=== PATIENT | male | born 1990 | race Caucasian/White ===

== ENCOUNTER 2022-11-11 12:03 | Inpatient (IN) | payer MEDICAID, SELFPAY ==
[2022-11-11 12:13] VITALS: BP 182/92; PULSE 106; RESP 16; TEMP 37.6; O2SAT 96; BMI 28.7
[2022-11-11 12:40] LABS: Basophils Absolute Auto 0.1 10^3/uL (0.0-0.1); Basophils Percent Auto 0.5 % (0.2-2.0); Eosinophils Absolute Auto 0.1 10^3/uL (0.0-0.7); Eosinophils Percent Auto 0.8 % (0.9-7.0); Hematocrit 47.1 % (42.0-54.0); Hemoglobin 16.9 g/dL (14.0-18.0); Immature Granulocytes Abs Auto 0.11 10^3/uL (0.00-0.03); Immature Granulocytes Pct Auto 0.7 % (0.0-0.5); Lymphocytes Absolute Auto 1.9 10^3/uL (1.2-3.8); Lymphocytes Percent Auto 12.5 % (20.5-60.0); Mean Corpuscular HGB Conc 35.9 g/dL (29.9-35.2); Mean Corpuscular Hemoglobin 32.8 pg (25.9-34.0); Mean Corpuscular Volume 91.3 fL (80.0-94.0); Mean Platelet Volume 10.9 fL (9.5-13.5); Monocytes Absolute Auto 1.5 10^3/uL (0.3-0.8); Monocytes Percent Auto 9.7 % (1.7-12.0); Neutrophils Absolute Auto 11.6 10^3/uL (1.4-6.5); Neutrophils Percent Auto 75.8 % (43.0-75.0); Platelet Count 201 10^3/uL (150-450); Red Blood Count 5.16 10^6/uL (4.70-6.10); Red Cell Distribution Width 12.3 % (11.0-15.0); White Blood Count 15.3 10^3/uL (4.0-11.0)
[2022-11-11] MEDS: DICYCLOMINE HCL 20 MG/2 ML VIAL IM (12:54)
[2022-11-11] MEDS: KETOROLAC TROMETHAMINE 30 MG/ML VIAL IVP ×2 (12:54→17:40)
[2022-11-11] MEDS: 0.9 % SODIUM CHLORIDE 1,000 ML 1000 ML IV (12:54)
[2022-11-11 12:57] LABS: Bilirubin Urine NEGATIVE (NEGATIVE); Blood Urine NEGATIVE (NEGATIVE); Clarity Urine CLEAR (CLEAR); Color Urine YELLOW (YELLOW); Glucose Urine UA NEGATIVE (NEGATIVE); Ketones Urine NEGATIVE (NEGATIVE); Leukocyte Esterase Urine NEGATIVE (NEGATIVE); Nitrite Urine NEGATIVE (NEGATIVE); Protein Urine NEGATIVE (NEG/TRACE); Urobilinogen Urine 0.2 EU/dL (0.2-1.0); pH Urine 7.5 (5.0-9.0)
--- NOTE | 2022-11-11 13:01 | XR_ITS ---
The [address] [address] Patient Name: MILLIE PASTOR MRN: [id number] date: 1990 Sex: M Assigned Patient Location: ER Current Patient Location: ER Accession/Order Number: [id number] Exam Date: 11/11/2022 13:12 Report Date: 11/11/2022 13:33 At the request of: AMY NGUYEN Procedure: XR acute abdomen series EXAMINATION: XR acute abdomen series HISTORY: abd pain COMPARISON: No relevant comparison available. FINDINGS: LUNGS: No infiltrate, pneumothorax, or pleural effusion. MEDIASTINUM: No abnormal widening. BOWEL GAS PATTERN: Non-obstructed. Few scattered air-fluid levels in the right lower quadrant, nonspecific FREE AIR: None. CALCIFICATIONS: Right pelvic calcifications, vascular phleboliths are favored. BONES: No fracture or visible bone lesion. OTHER: Negative. XR/XR acute abdomen series IMPRESSION: Clear lungs Scattered air-fluid levels with an overall nonobstructive bowel gas pattern Electronically authenticated by: NANCY EASTON Date: 11/11/2022 13:33
[2022-11-11 13:02] LABS: Aspartate Amino Transferase 15 U/L (15-37); BUN Creatinine Ratio 11.2; Bilirubin Direct 0.2 mg/dL (0.0-0.2); Bilirubin Total 1.5 mg/dL (0.2-1.0); Calcium 9.4 mg/dL (8.5-10.1); Carbon Dioxide 29.8 mmol/L (21.0-32.0); Chloride 98 mmol/L (98-107); Estimated GFR (African America >60 (>=60); Estimated GFR (Non-African Ame >60 (>=60); Glucose 112 mg/dL (74-106); Potassium 3.8 mmol/L (3.5-5.1); Sodium 135 mmol/L (136-145)
[2022-11-11 13:03] LABS: Alanine Aminotransferase 45 U/L (16-63); Albumin Level 3.9 g/dL (3.4-5.0); Alkaline Phosphatase 75 U/L (46-116); Total Protein 7.9 g/dL (6.4-8.2)
[2022-11-11 13:04] LABS: Lactate/Lactic Acid 1.2 mmol/L (0.4-2.0)
--- NOTE | 2022-11-11 13:06 | ED_ITS ---
HPI - General Adult General Chief complaint: Abdominal Pain Stated complaint: ABDOMINAL PAIN Time Seen by Provider: 11/11/22 12:33 Source: patient Mode of arrival: walk-in History of Present Illness HPI narrative: Patient is a 32-year-old male who is presenting to the Emergency Room with chief complaint of intermittent abdominal pain. Today patient's had diffuse abdominal pain moderate to severe for the past 2 days, it has been coming and going. Patient had diarrhea this morning. Patient states he's been having intermittent constipation as well. Patient's chances of bedside. Patient states that he works for [employer], has not been doing any type of heavy lifting, twisting or turning recently. Patient had similar complaints 2 weeks ago, they lasted a couple days and went away. Patient has been taking a [id number] stool softener for the past several weeks. Patient still has his gallbladder and appendix. Patient has no history kidney stone. Patient has no history of abdominal surgery. Patient has no testicular pain. No chest pain, shortness of breath, nausea, vomiting, or any other acute complaints. Patient states he does not drink enough water. Patient had diarrhea this morning, has been several days since he had a normal loose stool bowel movement. Patient's also been having intermittent dysuria last couple days and he also had similar dysuria several weeks ago that resolved on its own. Patient is not concerned about STD. . All systems are negative except as noted/marked. All systems reviewed and otherwise negative. . Nurses note and vital signs reviewed and patient is not hypoxic. General: The patient appears well and in no apparent distress. Patient is resting comfortably on cart. Patient is not toxic, lethargic, or listless Skin: Warm, dry, no pallor noted. There is no rash noted. No petechiae, purpura. Head: Normocephalic, atraumatic Eye: Normal conjunctiva, no drainage, EOMI. PERRL Ears, Nose, Mouth, and Throat: oral mucosa is moist. Nares patent. Mouth without vesicles. Cardiovascular: Regular Rate and Rhythm, no murmur, gallop, rub Respiratory: Patient is in no distress, no accessory muscle use, lungs are clear to auscultation, no wheezing, rales or rhonchi Back: non-tender, no CVA tenderness bilaterally to percussion. No CT LS midline pain GI: soft, Patient has moderate to severe diffuse tenderness to palpation, Patient denies any testicular pain, patient has no pain to bilateral inguinal area, no flank pain bilateral, patient is displaying mild peritoneal signs, bowel sounds quiet; no masses appreciated. No rebound, guarding, or rigidity noted. No flank pain bilateral, No distention Musculoskeletal: Patient has full range of motion of all of the extremities, no motor, sensory, or focal neurological deficits Neurological: A&O x3, normal speech Psychiatric: Cooperative Related Data Home Medications Medication Instructions Recorded Confirmed No Known Home Medications 11/11/22 11/11/22 Allergies Allergy/AdvReac Type Severity Reaction Status Date / Time amoxicillin AdvReac Severe Verified 11/11/22 12:54 PFSH PFSH Family History (Updated 11/11/22 @ 17:05 by Snow Rosales) Grandfather Family history of cancer Family history of diabetes mellitus Family history of stroke Father Family history of hypertension Social History (Updated 11/11/22 @ 17:08 by Snow Rosales) Within the past year, how often did you have a drink containing alcohol: monthly or less Within the past year, how many standard drinks containing alcohol did you have on a typical day: 1 or 2 Within the past year, how often did you have six or more drinks on one occasion: never Total score: 0 Score interpretation: A score less than 4 is consistent with normal alcohol consumption. Smoking status: Former smoker Non-prescribed substance use: denies use Previous occupational history: [employer] Highest level of school completed/degree received: high school graduate Are you now , , , , never or living with a partner: living with partner In a typical week, how many times do you talk on the telephone with family, friends, or neighbors: 3 or more times per week How often do you get together with friends or relatives: 3 or more times per week How often do you attend alevism or zoroastrian services: never Little interest or pleasure in doing things: not at all Feeling down, depressed, or hopeless: not at all Feel stressed/tense/nervous/anxious/difficulty sleeping: not at all Do you think of yourself as: straight/heterosexual Gender Identity: male Exam Constitutional Vital Signs, click to edit/add: Last Vital Signs Temp 98.6 F 11/11/22 17:10 Pulse 98 H 11/11/22 17:10 Resp 18 11/11/22 17:10 BP 158/100 H 11/11/22 17:10 Pulse Ox 95 11/11/22 17:10 O2 Del Method Room Air 11/11/22 17:10 Course Vital Signs Vital signs: Vital Signs Temperature 99.6 F 11/11/22 12:13 Pulse Rate 106 H 11/11/22 12:13 Respiratory Rate 16 11/11/22 12:13 Blood Pressure 182/92 H 11/11/22 12:13 Pulse Oximetry 96 11/11/22 12:13 Oxygen Delivery Method Room Air 11/11/22 12:13 Temperature 98.6 F 11/11/22 17:10 Pulse Rate 98 H 11/11/22 17:10 Respiratory Rate 18 11/11/22 17:10 Blood Pressure 158/100 H 11/11/22 17:10 Pulse Oximetry 95 11/11/22 17:10 Oxygen Delivery Method Room Air 11/11/22 17:10 Medical Decision Making MDM Narrative Medical decision making narrative: Patient had less than 100 mL noted on bladder scan. Patient was given 1 L of IV fluid. 4 mg of Zofran along with Toradol. 1420 Patient is still having diffuse pain. Patient's x-ray shows nonspecific bowel gas pattern, diffuse moderate stool pattern, no acute signs of obstruction. Patient does have elevated white blood cells of 15. Patient will have CT the abdomen and pelvis done for further evaluation and also will be given a dose of IV morphine [address] showed diverticulitis with intramural abscess. Patient's case was discussed with . He recommended patient be admitted to medicine with him in consultation. He recommended patient be nothing by mouth after midnight. Patient's case was discussed with Dr. Pak. She is aware of him. After midnight. recommended Cipro, Flagyl, IV fluids. Patient and his fianc?e at bedside have been educated about his CT findings and admission to the hospital. Patient is aware of nothing by mouth after midnight. Lab Data Lab results reviewed: Yes I reviewed the patient's lab results Labs: Lab Results 11/11/22 Range/Units 12:20 WBC 15.3 H (4.0-11.0) 10^3/uL RBC 5.16 (4.70-6.10) 10^6/uL Hgb 16.9 (14.0-18.0) g/dL Hct 47.1 (42.0-54.0) % MCV 91.3 (80.0-94.0) fL MCH 32.8 (25.9-34.0) pg MCHC 35.9 H (29.9-35.2) g/dL RDW 12.3 (11.0-15.0) % Plt Count 201 (150-450) 10^3/uL MPV 10.9 (9.5-13.5) fL Neut % (Auto) 75.8 H (43.0-75.0) % Lymph % (Auto) 12.5 L (20.5-60.0) % [place] % (Auto) 9.7 (1.7-12.0) % Eos % (Auto) 0.8 L (0.9-7.0) % Baso % (Auto) 0.5 (0.2-2.0) % Neut # (Auto) 11.6 H (1.4-6.5) 10^3/uL Lymph # (Auto) 1.9 (1.2-3.8) 10^3/uL [place] # (Auto) 1.5 H (0.3-0.8) 10^3/uL Eos # (Auto) 0.1 (0.0-0.7) 10^3/uL Baso # (Auto) 0.1 (0.0-0.1) 10^3/uL Abs Immat Gran (auto) 0.11 H (0.00-0.03) 10^3/uL Imm/Tot Granulo (auto) 0.7 H (0.0-0.5) % Sodium 135 L (136-145) mmol/L Potassium 3.8 (3.5-5.1) mmol/L Chloride 98 (98-107) mmol/L Carbon Dioxide 29.8 (21.0-32.0) mmol/L Anion Gap 11.0 BUN 13.0 (7.0-18.0) mg/dL Creatinine 1.16 (0.70-1.30) mg/dL Est GFR ( Amer) >60 (>=60) Est GFR (Non-Af Amer) >60 (>=60) BUN/Creatinine Ratio 11.2 Glucose 112 H (74-106) mg/dL Lactate 1.2 (0.4-2.0) mmol/L Calcium 9.4 (8.5-10.1) mg/dL Total Bilirubin 1.5 H (0.2-1.0) mg/dL Direct Bilirubin 0.2 (0.0-0.2) mg/dL AST 15 (15-37) U/L ALT 45 (16-63) U/L Alkaline Phosphatase 75 (46-116) U/L Total Protein 7.9 (6.4-8.2) g/dL Albumin 3.9 (3.4-5.0) g/dL Globulin 4.0 g/dL Albumin/Globulin Ratio 1.0 Urine Color Yellow (YELLOW) Urine Clarity Clear (CLEAR) Urine pH 7.5 (5.0-9.0) Ur Specific [place] 1.010 (1.005-1.025) Urine Protein Negative (NEG/TRACE) mg/dL Urine Glucose (UA) Negative (NEGATIVE) mg/dL Urine Ketones Negative (NEGATIVE) mg/dL Urine Occult Blood Negative (NEGATIVE) Urine Nitrite Negative (NEGATIVE) Urine Bilirubin Negative (NEGATIVE) Urine Urobilinogen 0.2 (0.2-1.0) EU/dL Ur Leukocyte Esterase Negative (NEGATIVE) Urine RBC 0-2 (0-2) #/HPF Urine WBC None seen (NONE SEEN) #/HPF Ur Squamous Epith Cells Rare (NONE/RARE) #/LPF Urine Crystals None seen (None Seen) #/HPF Urine Bacteria None seen (NONE SEEN) #/HPF Urine Casts None seen (NONE SEEN) #/LPF Urine Mucus None seen (NONE SEEN) Ur Culture Indicated? No Discharge Plan Discharge Chief Complaint: Abdominal Pain Clinical Impression: Diverticulitis, Abdominal pain Patient Disposition: Admitted As Inpatient Condition: Fair Discharge Date/Time: 11/11/22 16:45
[2022-11-11 13:16] LABS: Urine Microscopic Indicated YES
[2022-11-11 13:27] LABS: Bacteria Urine NONE SEEN #/HPF (NONE SEEN); Cast Seen? NONE SEEN #/LPF (NONE SEEN); Crystals Seen? None Seen #/HPF (None Seen); Mucus Urine NONE SEEN (NONE SEEN); RBC Urine 0-2 #/HPF (0-2); Squamous Epithelial Cell Urine RARE #/LPF (NONE/RARE); Urine Culture Indicated NO; WBC Urine NONE SEEN #/HPF (NONE SEEN)
--- NOTE | 2022-11-11 14:23 | CT_ITS ---
The [address] [address] Patient Name: MILLIE PASTOR MRN: [id number] date: 1990 Sex: M Assigned Patient Location: ER Current Patient Location: ER Accession/Order Number: [id number] Exam Date: 11/11/2022 14:44 Report Date: 11/11/2022 15:12 At the request of: AMY NGUYEN Procedure: CT abdomen pelvis w con EXAM: CT abdomen pelvis w con HISTORY: abd pain COMPARISON: None. TECHNIQUE: Following intravenous administration of 99 mL of Omnipaque 350, axial soft tissue windows of the abdomen and pelvis was performed with coronal and sagittal reformats. CT dose reduction technique was used including Automated Exposure Control. Findings: Minimal bilateral lower lobe atelectasis. ABDOMEN: There is fatty infiltration of the liver. The gallbladder, spleen, pancreas, adrenal glands and kidneys are unremarkable. The bilateral ureters are nondilated. Evaluation of the bowel is limited given the absence of oral contrast. There are colonic diverticula. There is sigmoid wall thickening with adjacent stranding of the fat consistent with acute diverticulitis. In addition, there is a posterior intramural abscess extending into the adjacent fat. This measures approximately 2.7 x 2.7 x 2.1 cm. No bowel obstruction. The appendix is nondilated. The aorta is normal caliber. No enlarged abdominal lymph nodes or free abdominal fluid. Pelvis: Unremarkable bladder. The prostate is nonenlarged. No enlarged pelvic lymph nodes or free pelvic fluid. No aggressive sclerotic or lytic osseous lesions. CT/CT abdomen pelvis w con IMPRESSION: 1. Acute sigmoid diverticulitis with an intramural abscess. Electronically authenticated by: YARITZA LINDSEY Date: 11/11/2022 15:12
[2022-11-11] MEDS: MORPHINE SULFATE 4 MG/ML VIAL IV (14:29)
--- NOTE | 2022-11-11 16:43 | PM.HP ---
H&P: HPI History of Present Illness Chief complaint: ABDOMINAL PAIN DIVERTICULITIS WITH ABSCESS Narrative: patient is a 32 y.o male who presented to the ER today with abdominal pain and diarrhea. He reports this has come and gone once before. No blood in stool, no fevers or chills. No prior abdominal surgeries, no bowel history or past medical history. Non-smoker. Allergies to Penicillin. CT Findings of acute diverculitis with small area suspicious for abscess. Dr. Clayton of Gen Surg consulted from the ER. Patient admitted to [facility] for further plan of care. Review of Systems ROS Narrative ROS: a complete review of systems were reviewed with patient and are positive as below or listed in History of Chief Complaint. General: no fever, chills, night sweats Head: no headache, trauma, visual changes, nausea or vomiting Skin: no reported rashes, itching or sores Eyes: no blurriness of vision Ears: no reported hearing loss, vertigo, earache, or tinnitus Throat: no sore throat, hoarseness, swelling of neck, or tongue pain Heart: no chest pain Lungs: no shortness of breath or cough GI: diarrhea no vomiting/nausea Urinary: no urinary urgency, frequency or pain Neuro: no numbness or tingling HEM: no bleeding issues or bruising ENDO: no thyroid problems Psych: no anxiety or depression Meds Home Medications and Allergies Allergies Allergy/AdvReac Type Severity Reaction Status Date / Time amoxicillin AdvReac Severe Verified 11/11/22 12:54 Exam Narrative Exam Narrative: General: Patient is alert, and oriented to person, place and time with normal affect, proper hygiene Skin: no visible rashes, or ulcers Head: atraumatic, acephalic Eyes: PERRLA, no nystagmus present, conjunctiva clear, no scleral icterus Ears: normal gross auditory acuity Nose: symmetric, no discharge, no maxillary or frontal sinus tenderness Mouth/Throat: no erythema, exudate, or tonsillar enlargement, normal dentition Neck: no masses palpated, normal thyroid, no JVD or audible carotid bruits Heart: Normal rate and rhythm, no murmurs/rubs/gallops Lungs: no audible wheezes, crackles and normal breath sounds all lung mason Abdomen: Normal audible bowel sounds, no distension, No palpable masses, no organomegaly, no rebound/guarding/ or rigidity Musculoskeletal: muscle atrophy noted, ROM is limited due to being in hospital bed, no swelling bilateral lower extremities Vascular: Normal carotid, radial, femoral, posterior tibial, and dorsalis pedis pulses Lymph: no supraclavicular, axillary, or anterior/posterior cervical adenopathy Neuro: CN II-X grossly intact, normal sensation upper and lower extremities Constitutional Vital Signs, click to edit/add: Last Vital Signs Temp 99.6 F 11/11/22 12:13 Pulse 106 H 11/11/22 12:13 Resp 16 11/11/22 12:13 BP 182/92 H 11/11/22 12:13 Pulse Ox 96 11/11/22 12:13 O2 Del Method Room Air 11/11/22 12:13 Results Labs Labs: Short CBC 11/11/22 Range/Units 12:20 WBC 15.3 H (4.0-11.0) 10^3/uL Hgb 16.9 (14.0-18.0) g/dL Hct 47.1 (42.0-54.0) % Plt Count 201 (150-450) 10^3/uL BMP 11/11/22 12:20 Sodium 135 L Potassium 3.8 Chloride 98 Carbon Dioxide 29.8 BUN 13.0 Creatinine 1.16 Glucose 112 H Calcium 9.4 Liver Function 11/11/22 Range/Units 12:20 Total Bilirubin 1.5 H (0.2-1.0) mg/dL Direct Bilirubin 0.2 (0.0-0.2) mg/dL AST 15 (15-37) U/L ALT 45 (16-63) U/L Alkaline Phosphatase 75 (46-116) U/L Albumin 3.9 (3.4-5.0) g/dL Urine 11/11/22 Range/Units 12:20 Urine Color Yellow (YELLOW) Urine Clarity Clear (CLEAR) Urine pH 7.5 (5.0-9.0) Ur Specific [place] 1.010 (1.005-1.025) Urine Protein Negative (NEG/TRACE) mg/dL Urine Glucose (UA) Negative (NEGATIVE) mg/dL Assessment and Plan Assessment and Plan (1) Acute diverticulitis: (2) Colonic diverticular abscess: (3) Elevated BP without diagnosis of hypertension: Plan NPO after midnight, surgery consult, IVF with LR @125, continue cipro and flagyl. Pain meds as needed for pain control. Hydralazine as needed, no known history of HTN, nonsmoker, will get EKG just for presurgery reasons and treat with PRN for now. patient is full code SCD's and RIKKI gomez for DVT prophylaxis, patient is ambulatory patient is observation status and is not expected to stay more than 2 midnights.
[2022-11-11 17:06] VITALS: BP 157/108
[2022-11-11] MEDS: LACTATED RINGER'S SOLUTION 1,000 ML 125 ML IV (17:06)
[2022-11-11] MEDS: HYDRALAZINE HCL 20 MG/ML VIAL 10 MG IVP (17:06)
[2022-11-11 17:09] VITALS: BP 158/100; PULSE 98; RESP 18; TEMP 37; O2SAT 95
[2022-11-11 17:10] VITALS: BP 158/100; PULSE 98; RESP 18; TEMP 37; O2SAT 95; BMI 28.5
[2022-11-11] MEDS: CIPROFLOXACIN IN 5 % DEXTROSE 400 MG/200 ML PIGGYBACK 200 MG IV (17:39)
[2022-11-11] MEDS: METRONIDAZOLE/SODIUM CHLORIDE 500 MG/100 ML PREMIX 100 MG IV ×2 (17:39→23:43)
[2022-11-11 20:00] VITALS: RESP 18
[2022-11-11 21:03] VITALS: BP 145/87; PULSE 107; RESP 18; TEMP 36.9; O2SAT 95
[2022-11-11] MEDS: ACETAMINOPHEN 325 MG TABLET 650 MG PO (21:10)
[2022-11-11] MEDS: ONDANSETRON PF 4 MG/2 ML VIAL IV (21:11)
[2022-11-11] MEDS: MORPHINE SULFATE 2 MG/ML SYRINGE 1 MG IV (23:38)
[2022-11-12 04:49] LABS: Basophils Absolute Auto 0.1 10^3/uL (0.0-0.1); Basophils Percent Auto 0.8 % (0.2-2.0); Eosinophils Absolute Auto 0.3 10^3/uL (0.0-0.7); Eosinophils Percent Auto 3.4 % (0.9-7.0); Hematocrit 40.7 % (42.0-54.0); Hemoglobin 14.1 g/dL (14.0-18.0); Immature Granulocytes Abs Auto 0.07 10^3/uL (0.00-0.03); Immature Granulocytes Pct Auto 0.9 % (0.0-0.5); Lymphocytes Absolute Auto 1.8 10^3/uL (1.2-3.8); Lymphocytes Percent Auto 23.6 % (20.5-60.0); Mean Corpuscular HGB Conc 34.6 g/dL (29.9-35.2); Mean Corpuscular Hemoglobin 32.7 pg (25.9-34.0); Mean Corpuscular Volume 94.4 fL (80.0-94.0); Mean Platelet Volume 10.8 fL (9.5-13.5); Monocytes Absolute Auto 0.8 10^3/uL (0.3-0.8); Monocytes Percent Auto 11.4 % (1.7-12.0); Neutrophils Absolute Auto 4.4 10^3/uL (1.4-6.5); Neutrophils Percent Auto 59.9 % (43.0-75.0); Platelet Count 170 10^3/uL (150-450); Red Blood Count 4.31 10^6/uL (4.70-6.10); Red Cell Distribution Width 12.4 % (11.0-15.0); White Blood Count 7.4 10^3/uL (4.0-11.0)
[2022-11-12 05:13] LABS: INR 0.97; Partial Thromboplastin Time 30.6 sec (22.3-36.2); Prothrombin Time 10.3 sec (9.0-11.6)
[2022-11-12 05:17] LABS: Alanine Aminotransferase 31 U/L (16-63); Albumin Globulin Ratio 0.8; Albumin Level 2.9 g/dL (3.4-5.0); Alkaline Phosphatase 53 U/L (46-116); Anion Gap 11.2; Aspartate Amino Transferase 10 U/L (15-37); Bilirubin Total 0.4 mg/dL (0.2-1.0); Calcium 8.8 mg/dL (8.5-10.1); Carbon Dioxide 29.7 mmol/L (21.0-32.0); Chloride 104 mmol/L (98-107); Estimated GFR (African America >60 (>=60); Estimated GFR (Non-African Ame >60 (>=60); Globulin 3.5 g/dL; Glucose 101 mg/dL (74-106); Potassium 3.9 mmol/L (3.5-5.1); Sodium 141 mmol/L (136-145); Total Protein 6.4 g/dL (6.4-8.2)
[2022-11-12 05:30] VITALS: BP 108/69; PULSE 81; RESP 18; TEMP 37.2; O2SAT 95
[2022-11-12] MEDS: MORPHINE SULFATE 2 MG/ML SYRINGE 1 MG IV ×2 (05:44→21:49)
[2022-11-12] MEDS: LACTATED RINGER'S SOLUTION 1,000 ML 125 ML IV ×4 (06:15→23:48)
[2022-11-12] MEDS: KETOROLAC TROMETHAMINE 30 MG/ML VIAL IVP ×2 (07:50→14:14)
[2022-11-12] MEDS: METRONIDAZOLE/SODIUM CHLORIDE 500 MG/100 ML PREMIX 100 MG IV ×3 (07:50→23:50)
[2022-11-12 08:00] VITALS: RESP 18
--- NOTE | 2022-11-12 08:45 | ECG_ITS ---
The [facility] Test Date: 2022-11-12 Pat Name: MILLIE PASTOR Department: Room: Gender: Male Rn Visiting: Alisson Longoria : 1990 Requested By: [id number] Order Number: [id number] Reading MD: ROBBI BALL Measurements Intervals [place] Rate: 66 P: 47 [place]: 149 QRS: -3 QRSD: 95 T: -8 QT: 404 QTc: 425 Interpretive Statements SINUS RHYTHM No previous ECG available for comparison Electronically Signed On 11-13-2022 7:32:03 EDT by ROBBI BALL
--- NOTE | 2022-11-12 08:45 | PM.PN ---
Progress Note: Subjective Subjective Interval history: patient is a 32 y.o male who presented to the ER with abdominal pain and diarrhea. He reports this has come and gone once before. No blood in stool, no fevers or chills. No prior abdominal surgeries, no bowel history or past medical history. Non-smoker. Allergies to Penicillin. CT Findings of acute diverticulitis with small area suspicious for abscess. Dr. Clayton of Gen Surg consulted from the ER. Patient admitted to [facility] for further plan of care. Still with some abdominal pain this morning, no diarrhea overnight, no fevers, no n/v. NPO currently. Exam Narrative Exam Narrative: General: Patient is alert, and oriented to person, place and time with normal affect, proper hygiene Skin: no visible rashes, or ulcers Head: atraumatic, acephalic Eyes: PERRLA, no nystagmus present, conjunctiva clear, no scleral icterus Ears: normal gross auditory acuity Nose: symmetric, no discharge, no maxillary or frontal sinus tenderness Mouth/Throat: no erythema, exudate, or tonsillar enlargement, normal dentition Neck: no masses palpated, normal thyroid, no JVD or audible carotid bruits Heart: Normal rate and rhythm, no murmurs/rubs/gallops Lungs: no audible wheezes, crackles and normal breath sounds all lung mason Abdomen:hyperactive bowel sounds, no distension, No palpable masses, no organomegaly, diffuse tenderness, worse on LLQ with no rebound or rigidity Musculoskeletal: muscle atrophy noted, ROM is limited due to being in hospital bed, no swelling bilateral lower extremities Vascular: Normal carotid, radial, femoral, posterior tibial, and dorsalis pedis pulses Lymph: no supraclavicular, axillary, or anterior/posterior cervical adenopathy Neuro: CN II-X grossly intact, normal sensation upper and lower extremities Constitutional Vital Signs, click to edit/add: Last Vital Signs Temp 98.9 F 11/12/22 05:30 Pulse 81 11/12/22 05:30 Resp 18 11/12/22 05:30 BP 108/69 11/12/22 05:30 Pulse Ox 95 11/12/22 05:30 O2 Del Method Room Air 11/12/22 05:30 Progress Note: Objective Labs Labs: Short CBC 11/11/22 11/12/22 Range/Units 12:20 04:10 WBC 15.3 H 7.4 (4.0-11.0) 10^3/uL Hgb 16.9 14.1 (14.0-18.0) g/dL Hct 47.1 40.7 L (42.0-54.0) % Plt Count 201 170 (150-450) 10^3/uL BMP 11/11/22 11/12/22 12:20 04:10 Sodium 135 L 141 Potassium 3.8 3.9 Chloride 98 104 Carbon Dioxide 29.8 29.7 BUN 13.0 10.0 Creatinine 1.16 0.91 Glucose 112 H 101 Calcium 9.4 8.8 Liver Function 11/11/22 11/12/22 Range/Units 12:20 04:10 Total Bilirubin 1.5 H 0.4 (0.2-1.0) mg/dL Direct Bilirubin 0.2 (0.0-0.2) mg/dL AST 15 10 L (15-37) U/L ALT 45 31 (16-63) U/L Alkaline Phosphatase 75 53 (46-116) U/L Albumin 3.9 2.9 L (3.4-5.0) g/dL Urine 11/11/22 Range/Units 12:20 Urine Color Yellow (YELLOW) Urine Clarity Clear (CLEAR) Urine pH 7.5 (5.0-9.0) Ur Specific [place] 1.010 (1.005-1.025) Urine Protein Negative (NEG/TRACE) mg/dL Urine Glucose (UA) Negative (NEGATIVE) mg/dL Progress Note: A&P Assessment and Plan (1) Acute diverticulitis: (2) Colonic diverticular abscess: (3) Elevated BP without diagnosis of hypertension: Plan NPO after midnight, surgery consult, IVF with LR @125, continue cipro and flagyl. Pain meds as needed for pain control. Hydralazine as needed, no known history of HTN, nonsmoker, will get EKG just for presurgery reasons and treat with PRN for now. WBCs improved this morning. patient is full code SCD's and RIKKI hose for DVT prophylaxis, patient is ambulatory patient is observation status and is not expected to stay more than 2 midnights.
--- NOTE | 2022-11-12 11:27 | CM.NOTE ---
Rounds made with Dr. Pak. Awaiting plan from General Surgery. No needs identified.
[2022-11-12 14:00] VITALS: BP 126/76; PULSE 70; RESP 18; TEMP 36.6; O2SAT 95
--- NOTE | 2022-11-12 15:10 | P.GSCN_ITS ---
History of Present Illness Consult details Consult date: 11/12/22 Reason for consult: abdominal pain Requesting physician: Sabrina Pak Narrative: Maycol Pastor is a 32-year-old male presented to the Emergency Department yesterday with complaints of abdominal pain in the left side of the abdomen so she with fever and chills which he rated to be about a 6-7 out of ten at that time. He now rates his pain as a five out of ten. It is constant. He denies any nausea vomiting melena hematochezia or any family history of inflammatory bowel disease or colon cancer. He stated that about two weeks ago he had similar pain lasted for 2-3 days with a fever but he cannot quantitate how high his temperature went because he never took it and then that it hurt to walk the pain got better and then returned 1-2 days ago. He had a CT scan of the abdomen and pelvisWith findings showing acute diverticulitis with intramural abscess.He is receiving Toradol 30 mg IV every 6 hours when necessary pain. Hurts for him to walk. He denies tobacco use but does of [place] regularly. 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 His is at the bedside. He has a 6-year-old [place] [address] CT Scan Report Signed Patient: MILLIE PASTOR MR#: [id number] : 1990 Acct:[id number] Age/Sex: 32 / M ADM Date: 11/11/22 Loc: ER Attending Dr: Ordering Physician: Amy Hunter Date of Service: 11/11/22 Procedure(s): CT abdomen pelvis w con Accession Number(s): [id number] cc: SAYDA GORDON ~ ? The [facility] ?? ? [address] [place] [address] ?? ? [place] [address] ? Patient Name: MILLIE PASTOR ? MRN: [id number]? ? date: 1990? ? Sex: M Assigned Patient Location: ER Current Patient Location: ER Accession/Order Number: [id number] Exam Date: 11/11/2022? 14:44? ? Report Date: 11/11/2022? 15:12 ? At the request of: AMY? PAY? ? Procedure:? CT abdomen pelvis w con ? EXAM: CT abdomen pelvis w con ? HISTORY: abd pain ? COMPARISON: None. ? TECHNIQUE: Following intravenous administration of 99 mL of Omnipaque 350, axial soft tissue windows of the abdomen and pelvis was performed with coronal ? and sagittal reformats. CT dose reduction technique was used including Automated Exposure Control. ? Findings: ? Minimal bilateral lower lobe atelectasis. ? ABDOMEN: ? There is fatty infiltration of the liver. ? The gallbladder, spleen, pancreas, adrenal glands and kidneys are unremarkable. The bilateral ureters are nondilated. ? Evaluation of the bowel is limited given the absence of oral contrast. There are colonic diverticula. There is sigmoid wall thickening with adjacent stranding of the fat consistent with acute diverticulitis. In addition, there is a posterior intramural abscess extending into the adjacent fat. This measures approximately 2.7 x 2.7 x 2.1 cm. No bowel obstruction. The appendix is nondilated. ? The aorta is normal caliber. ? No enlarged abdominal lymph nodes or free abdominal fluid. ? Pelvis: ? Unremarkable bladder. ? The prostate is nonenlarged. ? No enlarged pelvic lymph nodes or free pelvic fluid. ? No aggressive sclerotic or lytic osseous lesions. ? CT/CT abdomen pelvis w con IMPRESSION: 1. Acute sigmoid diverticulitis with an intramural abscess. ? ? Electronically authenticated by: TATY AREVALO ? Date: 11/11/2022? 15:12 ? Dictated By: George Arevalo M.D. Signed By: 11/11/22 1514 DD/ 1512 TD/TT:? Layaway Clerk: Review of Systems ROS Status of ROS 10 or more systems reviewed and unremarkable except as noted in history and below PFSH PFSH Family History Grandfather Family history of cancer Family history of diabetes mellitus Family history of stroke Father Family history of hypertension Social History Within the past year, how often did you have a drink containing alcohol: monthly or less Within the past year, how many standard drinks containing alcohol did you have on a typical day: 1 or 2 Within the past year, how often did you have six or more drinks on one occasion: never Total score: 0 Score interpretation: A score less than 4 is consistent with normal alcohol consumption. 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 Highest level of school completed/degree received: high school graduate Are you now , , , , never or living with a partner: living with partner In a typical week, how many times do you talk on the telephone with family, friends, or neighbors: 3 or more times per week How often do you get together with friends or relatives: 3 or more times per week How often do you attend faith or sabianist services: never Little interest or pleasure in doing things: not at all Feeling down, depressed, or hopeless: not at all Feel stressed/tense/nervous/anxious/difficulty sleeping: not at all Do you think of yourself as: straight/heterosexual Gender Identity: male Meds Home Medications and Allergies Home Medications Medication Instructions Recorded Confirmed Type No Known Home Medications 11/11/22 11/11/22 History Allergies Allergy/AdvReac Type Severity Reaction Status Date / Time amoxicillin AdvReac Severe Verified 11/11/22 12:54 Exam Constitutional Vital Signs, click to edit/add: Last Vital Signs Temp 97.8 F 11/12/22 14:00 Pulse 70 11/12/22 14:00 Resp 18 11/12/22 14:00 BP 126/76 H 11/12/22 14:00 Pulse Ox 95 11/12/22 14:00 O2 Del Method Room Air 11/12/22 14:00 Documenting provider has reviewed patient's vital signs: yes Common normals: no apparent distress, average body habitus, oriented x3 and healthy appearing Respiratory Auscultation: clear to auscultation bilaterally GI Inspection: normal to inspection Palpation: tender Details: RLQ and guarding in the RLQ Neuro Common normals: oriented x3 Sensorium/orientation: awake, alert, oriented to person, oriented to place and oriented to time Results Labs Labs: Abnormal lab results 11/12/22 Range/Units 04:10 RBC 4.31 L (4.70-6.10) 10^6/uL Hct 40.7 L (42.0-54.0) % MCV 94.4 H (80.0-94.0) fL Abs Immat Gran (auto) 0.07 H (0.00-0.03) 10^3/uL Imm/Tot Granulo (auto) 0.9 H (0.0-0.5) % AST 10 L (15-37) U/L Albumin 2.9 L (3.4-5.0) g/dL Diabetes panel 11/12/22 Range/Units 04:10 Sodium 141 (136-145) mmol/L Potassium 3.9 (3.5-5.1) mmol/L Chloride 104 (98-107) mmol/L Carbon Dioxide 29.7 (21.0-32.0) mmol/L BUN 10.0 (7.0-18.0) mg/dL Creatinine 0.91 (0.70-1.30) mg/dL Glucose 101 (74-106) mg/dL Calcium 8.8 (8.5-10.1) mg/dL AST 10 L (15-37) U/L ALT 31 (16-63) U/L Alkaline Phosphatase 53 (46-116) U/L Total Protein 6.4 (6.4-8.2) g/dL Albumin 2.9 L (3.4-5.0) g/dL Calcium panel 11/12/22 Range/Units 04:10 Calcium 8.8 (8.5-10.1) mg/dL Albumin 2.9 L (3.4-5.0) g/dL Pituitary panel 11/12/22 Range/Units 04:10 Sodium 141 (136-145) mmol/L Potassium 3.9 (3.5-5.1) mmol/L Chloride 104 (98-107) mmol/L Carbon Dioxide 29.7 (21.0-32.0) mmol/L BUN 10.0 (7.0-18.0) mg/dL Creatinine 0.91 (0.70-1.30) mg/dL Glucose 101 (74-106) mg/dL Calcium 8.8 (8.5-10.1) mg/dL Adrenal panel 11/12/22 Range/Units 04:10 Sodium 141 (136-145) mmol/L Potassium 3.9 (3.5-5.1) mmol/L Chloride 104 (98-107) mmol/L Carbon Dioxide 29.7 (21.0-32.0) mmol/L BUN 10.0 (7.0-18.0) mg/dL Creatinine 0.91 (0.70-1.30) mg/dL Glucose 101 (74-106) mg/dL Calcium 8.8 (8.5-10.1) mg/dL Total Bilirubin 0.4 (0.2-1.0) mg/dL AST 10 L (15-37) U/L ALT 31 (16-63) U/L Alkaline Phosphatase 53 (46-116) U/L Total Protein 6.4 (6.4-8.2) g/dL Albumin 2.9 L (3.4-5.0) g/dL All other labs normal. Assessment and Plan Assessment and Plan (1) Acute diverticulitis: (2) Colonic diverticular abscess: (3) Elevated BP without diagnosis of hypertension: Plan NPO after midnight, surgery consult, IVF with LR @125, continue cipro and flagyl. Pain meds as needed for pain control. Hydralazine as needed, no known history of HTN, nonsmoker, will get EKG just for presurgery reasons and treat with PRN for now. patient is full code SCD's and RIKKI gomez for DVT prophylaxis, patient is ambulatory patient is observation status and is not expected to stay more than 2 midnights. IV antibiotics for 48-72 hours and reassess clinically better and advance diet to clears. Recommend ambulation as tolerated. Will follow daily. Diverticular handout given to patient by nursing. If not better in seventy-two hours may need repeat CAT scan but will follow.
[2022-11-12] MEDS: CIPROFLOXACIN IN 5 % DEXTROSE 400 MG/200 ML PIGGYBACK 200 MG IV (19:42)
[2022-11-12 19:52] VITALS: RESP 18
[2022-11-12 21:19] VITALS: BP 132/87; PULSE 65; RESP 18; TEMP 36.7; O2SAT 96
[2022-11-13] VITALS (12 sets, daily range): BP systolic 126–162; BP diastolic 85–117; PULSE 59–75; RESP 18; TEMP 36.5–36.6; O2SAT 95–96; BMI 28.5
[2022-11-13 04:46] LABS: Basophils Absolute Auto 0.1 10^3/uL (0.0-0.1); Eosinophils Absolute Auto 0.3 10^3/uL (0.0-0.7); Eosinophils Percent Auto 4.1 % (0.9-7.0); Hematocrit 39.4 % (42.0-54.0); Hemoglobin 13.7 g/dL (14.0-18.0); Immature Granulocytes Abs Auto 0.07 10^3/uL (0.00-0.03); Immature Granulocytes Pct Auto 1.2 % (0.0-0.5); Lymphocytes Percent Auto 32.6 % (20.5-60.0); Mean Corpuscular HGB Conc 34.8 g/dL (29.9-35.2); Mean Corpuscular Hemoglobin 32.6 pg (25.9-34.0); Mean Corpuscular Volume 93.8 fL (80.0-94.0); Monocytes Absolute Auto 0.7 10^3/uL (0.3-0.8); Monocytes Percent Auto 11.8 % (1.7-12.0); Neutrophils Percent Auto 49.3 % (43.0-75.0); Platelet Count 166 10^3/uL (150-450); Red Cell Distribution Width 12.4 % (11.0-15.0)
[2022-11-13 05:07] LABS: Alanine Aminotransferase 34 U/L (16-63); Albumin Globulin Ratio 0.9; Albumin Level 2.9 g/dL (3.4-5.0); Alkaline Phosphatase 46 U/L (46-116); Anion Gap 11.5; Aspartate Amino Transferase 17 U/L (15-37); BUN Creatinine Ratio 8.2; Bilirubin Total 0.4 mg/dL (0.2-1.0); Calcium 8.5 mg/dL (8.5-10.1); Carbon Dioxide 28.4 mmol/L (21.0-32.0); Chloride 104 mmol/L (98-107); Estimated GFR (African America >60 (>=60); Estimated GFR (Non-African Ame >60 (>=60); Globulin 3.3 g/dL; Glucose 91 mg/dL (74-106); Potassium 3.9 mmol/L (3.5-5.1); Sodium 140 mmol/L (136-145); Total Protein 6.2 g/dL (6.4-8.2)
--- NOTE | 2022-11-13 08:55 | P.PN_ITS ---
Progress Note: Subjective Subjective Interval history: patient is a 32 y.o male who presented to the ER with abdominal pain and diarrhea. He reports this has come and gone once before. No blood in stool, no fevers or chills. No prior abdominal surgeries, no bowel history or past medical history. Non-smoker. Allergies to Penicillin. CT Findings of acute diverticulitis with small area suspicious for abscess. Dr. Clayton of Gen Surg consulted from the ER. Patient admitted to [facility] for further plan of care. Ab dominal pain has improved this morning, no BM's overnight, no fevers, no n/v. on Clears currently. Exam Narrative Exam Narrative: General: Patient is alert, and oriented to person, place and time with normal affect, proper hygiene Skin: no visible rashes, or ulcers Head: atraumatic, acephalic Heart: Normal rate and rhythm, no murmurs/rubs/gallops Lungs: no audible wheezes, crackles and normal breath sounds all lung mason Abdomen:hyperactive bowel sounds, no distension, No palpable masses, no o rganomegaly, diffuse tenderness with no rebound or rigidity Musculoskeletal: muscle atrophy noted, ROM is limited due to being in hospital bed, no swelling bilateral lower extremities Vascular: Normal carotid, radial, femoral, posterior tibial, and dorsalis pedis pulses Lymph: no supraclavicular, axillary, or anterior/posterior cervical adenopathy Neuro: CN II-X grossly intact, normal sensation upper and lower extremities Constitutional Vital Signs, click to edit/add: Last Vital Signs Temp 97.7 F 11/13/22 05:49 Pulse 59 L 11/13/22 08:09 Resp 18 11/13/22 05:49 BP 126/85 H 11/13/22 05:49 Pulse Ox 96 11/13/22 05:49 O2 Del Method Room Air 11/13/22 05:49 Progress Note: Objective Labs Labs: Short CBC 11/13/22 Range/Units 03:54 WBC 6.0 (4.0-11.0) 10^3/uL Hgb 13.7 L (14.0-18.0) g/dL Hct 39.4 L (42.0-54.0) % Plt Count 166 (150-450) 10^3/uL BMP 11/13/22 03:54 Sodium 140 Potassium 3.9 Chloride 104 Carbon Dioxide 28.4 BUN 8.0 Creatinine 0.97 Glucose 91 Calcium 8.5 Liver Function 11/13/22 Range/Units 03:54 Total Bilirubin 0.4 (0.2-1.0) mg/dL AST 17 (15-37) U/L ALT 34 (16-63) U/L Alkaline Phosphatase 46 (46-116) U/L Albumin 2.9 L (3.4-5.0) g/dL Progress Note: A&P Assessment and Plan (1) Acute diverticulitis: (2) Colonic diverticular abscess: (3) Elevated BP without diagnosis of hypertension: Plan surgery consult follow recs, IVF with LR @125, continue cipro and flagyl. Pain meds as needed for pain control. Hydralazine as needed, no known history of HTN, nonsmoker WBCs improved this morning. Clear diet, no BM, still with some pain; repeat CT in 72 hours if symptoms still present or worse. will need 2 weeks of antibiotics at discharge. advance diet once pain free patient is full code SCD's and RIKKI gomez for DVT prophylaxis, patient is ambulatory patient is inpatient status and is not expected to stay more than 2 midnights.
[2022-11-13] MEDS: LACTATED RINGER'S SOLUTION 1,000 ML 125 ML IV ×2 (09:01→19:33)
[2022-11-13] MEDS: METRONIDAZOLE/SODIUM CHLORIDE 500 MG/100 ML PREMIX 100 MG IV ×2 (09:04→15:11)
--- NOTE | 2022-11-13 12:49 | P.HP_ITS ---
H&P: HPI History of Present Illness Chief complaint: ABDOMINAL PAIN DIVERTICULITIS WITH ABSCESS PFSH PFSH Family History Grandfather Family history of cancer Family history of diabetes mellitus Family history of stroke Father Family history of hypertension Social History Within the past year, how often did you have a drink containing alcohol: monthly or less Within the past year, how many standard drinks containing alcohol did you have on a typical day: 1 or 2 Within the past year, how often did you have six or more drinks on one occasion: never Total score: 0 Score interpretation: A score less than 4 is consistent with normal alcohol consumption. 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 Highest level of school completed/degree received: high school graduate Are you now , , , , never or living with a partner: living with partner In a typical week, how many times do you talk on the telephone with family, friends, or neighbors: 3 or more times per week How often do you get together with friends or relatives: 3 or more times per week How often do you attend religious or church services: never Little interest or pleasure in doing things: not at all Feeling down, depressed, or hopeless: not at all Feel stressed/tense/nervous/anxious/difficulty sleeping: not at all Do you think of yourself as: straight/heterosexual Gender Identity: male Meds Home Medications and Allergies Home Medications Medication Instructions Recorded Confirmed Type No Known Home Medications 11/11/22 11/11/22 History levofloxacin 750 mg tablet 750 mg PO DAILY 10 days #10 tabs 11/14/22 Rx metronidazole 500 mg tablet 500 mg PO Q8H 10 days #30 tabs 11/14/22 Rx Allergies Allergy/AdvReac Type Severity Reaction Status Date / Time amoxicillin AdvReac Severe Verified 11/11/22 12:54 Exam Constitutional Vital Signs, click to edit/add: Last Vital Signs Temp 97.7 F 11/13/22 05:49 Pulse 75 11/13/22 11:59 Resp 18 11/13/22 08:00 BP 126/85 H 11/13/22 05:49 Pulse Ox 96 11/13/22 05:49 O2 Del Method Room Air 11/13/22 05:49 Results Labs Labs: Short CBC 11/13/22 Range/Units 03:54 WBC 6.0 (4.0-11.0) 10^3/uL Hgb 13.7 L (14.0-18.0) g/dL Hct 39.4 L (42.0-54.0) % Plt Count 166 (150-450) 10^3/uL BMP 11/13/22 03:54 Sodium 140 Potassium 3.9 Chloride 104 Carbon Dioxide 28.4 BUN 8.0 Creatinine 0.97 Glucose 91 Calcium 8.5 Liver Function 11/13/22 Range/Units 03:54 Total Bilirubin 0.4 (0.2-1.0) mg/dL AST 17 (15-37) U/L ALT 34 (16-63) U/L Alkaline Phosphatase 46 (46-116) U/L Albumin 2.9 L (3.4-5.0) g/dL Assessment and Plan Assessment and Plan (1) Acute diverticulitis: (2) Colonic diverticular abscess: (3) Elevated BP without diagnosis of hypertension: Plan NPO after midnight, surgery consult, IVF with LR @125, continue cipro and flagyl. Pain meds as needed for pain control. Hydralazine as needed, no known history of HTN, nonsmoker, will get EKG just for presurgery reasons and treat with PRN for now. patient is full code SCD's and RIKKI gomez for DVT prophylaxis, patient is ambulatory patient is observation status and is not expected to stay more than 2 midnights. IV antibiotics for 48-72 hours and reassess clinically better and advance diet to clears. Recommend ambulation as tolerated. Will follow daily. Diverticular handout given to patient by nursing. If not better in seventy-two hours may need repeat CAT scan but will follow.
--- NOTE | 2022-11-13 13:37 | CM.NOTE ---
Rounds made with Dr. Pak. Plan to continue IV antibiotics per Surgery recommendations. No plan for discharge today.
--- NOTE | 2022-11-13 13:45 | PM.GSPN ---
Progress Note: A&P Assessment and Plan (1) Acute diverticulitis: (2) Colonic diverticular abscess: (3) Elevated BP without diagnosis of hypertension: Plan continue IV antibiotics; clear liquids until pain free and then would recommend 2 weeks worth of po cipro + flagyl and only advance to soft diet after pain free. Subjective Subjective Patient reports: no new complaints, feels better, pain is less, tolerating liquids well, no bowel movement and afebrile Interval history: Tolerating clear liquids started today. Would not advance to regular diet until passing more flatus or pain free.WBC normal Exam Constitutional Vital Signs, click to edit/add: Last Vital Signs Temp 97.7 F 11/13/22 05:49 Pulse 75 11/13/22 11:59 Resp 18 11/13/22 08:00 BP 126/85 H 11/13/22 05:49 Pulse Ox 96 11/13/22 05:49 O2 Del Method Room Air 11/13/22 05:49 Documenting provider has reviewed patient's vital signs: yes Common normals: no apparent distress and oriented x3 GI Common normals: soft to palpation Palpation: tender (less tenderness than yesterday)
[2022-11-13] MEDS: KETOROLAC TROMETHAMINE 30 MG/ML VIAL IVP (15:11)
[2022-11-13] MEDS: CIPROFLOXACIN IN 5 % DEXTROSE 400 MG/200 ML PIGGYBACK 200 MG IV (22:09)
[2022-11-13] MEDS: HYDRALAZINE HCL 20 MG/ML VIAL 10 MG IVP (22:42)
[2022-11-14] MEDS: METRONIDAZOLE/SODIUM CHLORIDE 500 MG/100 ML PREMIX 100 MG IV ×2 (01:34→08:43)
[2022-11-14 03:58] VITALS: BP 145/102; PULSE 65; RESP 18; TEMP 36.6; O2SAT 96
[2022-11-14 04:35] LABS: Basophils Absolute Auto 0.1 10^3/uL (0.0-0.1); Basophils Percent Auto 0.9 % (0.2-2.0); Eosinophils Absolute Auto 0.2 10^3/uL (0.0-0.7); Eosinophils Percent Auto 3.1 % (0.9-7.0); Hematocrit 43.5 % (42.0-54.0); Immature Granulocytes Abs Auto 0.09 10^3/uL (0.00-0.03); Immature Granulocytes Pct Auto 1.5 % (0.0-0.5); Lymphocytes Absolute Auto 1.8 10^3/uL (1.2-3.8); Lymphocytes Percent Auto 30.4 % (20.5-60.0); Mean Corpuscular HGB Conc 34.5 g/dL (29.9-35.2); Mean Corpuscular Hemoglobin 32.2 pg (25.9-34.0); Mean Corpuscular Volume 93.3 fL (80.0-94.0); Mean Platelet Volume 10.5 fL (9.5-13.5); Monocytes Absolute Auto 0.7 10^3/uL (0.3-0.8); Monocytes Percent Auto 11.3 % (1.7-12.0); Neutrophils Absolute Auto 3.1 10^3/uL (1.4-6.5); Neutrophils Percent Auto 52.8 % (43.0-75.0); Platelet Count 193 10^3/uL (150-450); Red Blood Count 4.66 10^6/uL (4.70-6.10); Red Cell Distribution Width 12.4 % (11.0-15.0); White Blood Count 5.8 10^3/uL (4.0-11.0)
[2022-11-14 04:47] LABS: Alanine Aminotransferase 45 U/L (16-63); Albumin Globulin Ratio 0.9; Albumin Level 3.1 g/dL (3.4-5.0); Alkaline Phosphatase 49 U/L (46-116); Anion Gap 12.2; Aspartate Amino Transferase 27 U/L (15-37); BUN Creatinine Ratio 7.4; Bilirubin Total 0.5 mg/dL (0.2-1.0); Calcium 8.6 mg/dL (8.5-10.1); Carbon Dioxide 27.5 mmol/L (21.0-32.0); Chloride 105 mmol/L (98-107); Estimated GFR (African America >60 (>=60); Estimated GFR (Non-African Ame >60 (>=60); Globulin 3.5 g/dL; Glucose 91 mg/dL (74-106); Potassium 3.7 mmol/L (3.5-5.1); Sodium 141 mmol/L (136-145); Total Protein 6.6 g/dL (6.4-8.2)
[2022-11-14] MEDS: LACTATED RINGER'S SOLUTION 1,000 ML 125 ML IV (06:10)
--- NOTE | 2022-11-14 06:18 | P.GSPN_ITS ---
Progress Note: A&P Assessment and Plan (1) Acute diverticulitis: (2) Colonic diverticular abscess: (3) Elevated BP without diagnosis of hypertension: Plan advanced to full liquid diet; okay to discharge but would recommend two weeks worth of Cipro and Flagyl; advance to soft diet once pain has resolved compl etely. Subjective Subjective Patient reports: no new complaints, feels better, pain is less, tolerating liquids well, bowel movement and afebrile Interval history: patient feeling better and had bowel movement last evening. Desires full liquids. Will advance to full iquids and recommend staying on this diet until all pain has resolved. Exam Constitutional Vital Signs, click to edit/add: Last Vital Signs Temp 97.9 F 11/14/22 03:58 Pulse 65 11/14/22 03:58 Resp 18 11/14/22 03:58 BP 145/102 H 11/14/22 03:58 Pulse Ox 96 11/14/22 03:58 O2 Del Method Room Air 11/14/22 03:58 Documenting provider has reviewed patient's vital signs: yes Common normals: no apparent distress and oriented x3 GI Common normals: Normal to inspection, nondistended, normoactive bowel sounds present Palpation: soft and other (normal tenderness left lower quadrant no guarding or rebound)
--- NOTE | 2022-11-14 13:08 | PM.DS1 ---
DS: Providers Provider Date of admission: 11/12/22 13:04 Primary care physician: SAYDA GORDON Consults: 11/11/22 16:34 Consult to General Surgeon Routine Consulting Provider: Venkat Clayton Attending physician on discharge: Shaikh Kieran Discharging clinician: Shaikh Kieran Anticipated date of discharge: 11/14/22 DS: Diagnosis Discharge Diagnosis (1) Acute diverticulitis: Assessment and plan: Tolerating liquid diet. Minimal LLQ pain. No nausea/vomiting. On Cipro/flagyl. (2) Colonic diverticular abscess: Assessment and plan: Conservatively managed with bowel rest and Abx. (3) Elevated BP without diagnosis of hypertension: Assessment and plan: Will defer to PCP for treatment if deemed necessary. DS: Summary Hospital Course Hospital Course: Patient presented with abdominal pain and diarrhea - work up c/w acute diverticulitis with diverticular abscess. Managed conservatively with Bowel rest, IV fluids and IV Cipro and Flagyl. Gradually advanced diet. Tolerating liquid diet. No nausea/vomiting. Pain is minimal. Still has diarrhea but improved from before. Evaluated by Gen Surgery. Ok to discharge on oral Abx. Patient to slowly advance his diet as tolerated. Outpatient Colonoscopy in 6-8 weeks. F/u with PCP in 1-2 weeks. Patient educated on worrisome signs and symptoms that should prompt him to seek medical care and return to ED if needed. Status at Discharge Functional status at discharge: independent ambulation Overall status at discharge: patient is back to baseline Time Spent with Patient Time attestation: Total time spent providing and/or coordinating discharge services: Time spent: greater than 30 minutes Exam Constitutional Vital Signs, click to edit/add: Last Vital Signs Temp 97.9 F 11/14/22 03:58 Pulse 65 11/14/22 03:58 Resp 18 11/14/22 03:58 BP 145/102 H 11/14/22 03:58 Pulse Ox 96 11/14/22 03:58 O2 Del Method Room Air 11/14/22 03:58 Documenting provider has reviewed patient's vital signs: yes Common normals: no apparent distress and average body habitus HENAK Common normals: normocephalic and head/scalp atraumatic Eye Common normals: conjunctivae normal Respiratory Common normals: normal respiratory effort, no use of accessory muscles and clear to auscultation bilaterally Cardio Common normals: no JVD, regular rate, S1 normal heart sound, S2 normal heart sound and no murmurs GI Common normals: Normal to inspection, nondistended, normoactive bowel sounds present, soft to palpation and no hepatosplenomegaly Palpation: tender (mild tenderness in LLQ) Details: LLQ Neuro Common normals: oriented x3, moves all extremities, no focal motor deficits and no sensory deficits noted Psych Common normals: mental status grossly normal, cooperative, denies hallucinations, denies homicidal ideation and denies suicidal ideation DS: Data Data Completed and Pending Labs on day of discharge: Labs from last 24 hours 11/14/22 03:54 WBC 5.8 RBC 4.66 L Hgb 15.0 Hct 43.5 MCV 93.3 MCH 32.2 MCHC 34.5 RDW 12.4 Plt Count 193 MPV 10.5 Neut % (Auto) 52.8 Lymph % (Auto) 30.4 [place] % (Auto) 11.3 Eos % (Auto) 3.1 Baso % (Auto) 0.9 Neut # (Auto) 3.1 Lymph # (Auto) 1.8 [place] # (Auto) 0.7 Eos # (Auto) 0.2 Baso # (Auto) 0.1 Abs Immat Gran (auto) 0.09 H Imm/Tot Granulo (auto) 1.5 H Sodium 141 Potassium 3.7 Chloride 105 Carbon Dioxide 27.5 Anion Gap 12.2 BUN 7.0 Creatinine 0.94 Est GFR ( Amer) >60 Est GFR (Non-Af Amer) >60 BUN/Creatinine Ratio 7.4 Glucose 91 Calcium 8.6 Total Bilirubin 0.5 AST 27 ALT 45 Alkaline Phosphatase 49 Total Protein 6.6 Albumin 3.1 L Globulin 3.5 Albumin/Globulin Ratio 0.9 Discharge Plan Discharge Disposition: Home, Self-Care Condition: Fair Discharge Medications: New levofloxacin 750 mg tablet 750 mg PO DAILY 10 Days Qty: 10 0RF metronidazole 500 mg tablet 500 mg PO Q8H 10 Days Qty: 30 0RF No Action No Known Home Medications Activity: resume usual activities as tolerated Diet Detail: Liquid diet, slowly advance to soft diet and then regular diet as tolerated Patient Instructions: Diverticulitis (GEN), Diverticulitis Diet (GEN) Forms: Portal Instructions Follow Up Appointments: PCP in 1-2 week
--- NOTE | 2022-11-16 15:19 | CM.DCFOLLOWU ---
Person spoke with:patient How are you feeling? well How is your pain? a little pain last night Did you understand your discharge instructions? yes Do you have any questions about your discharge instructions? no Were you given any prescriptions at discharge? yes Were you able to get your prescriptions filled? yes Do you understand how to take your medications as ordered? yes Do you have any questions about your follow up appointment and do you plan to keep your follow up appointment? no questions and yes Is there anything else that you would like to discuss? no Questions/Comments/Concerns/Other:
== END 2022-11-14 14:36 | disposition home or self-care (01) | DRG 392 ==
LOC: ER 16:59 → MS 11-12 06:13
PROVIDERS: Admitting Provider Internal Medicine; Emergency Provider Emergency Medicine; PCP Internal Medicine; Visit Provider Family Medicine
DX: K57.20 Diverticulitis of large intestine with perforation and abscess without bleeding (principal); R03.0 Elevated blood-pressure reading, without diagnosis of hypertension; Z83.3 Family history of diabetes mellitus; Z82.3 Family history of stroke; Z80.9 Family history of malignant neoplasm, unspecified; Z82.49 Family history of ischemic heart disease and other diseases of the circulatory system; Z87.891 Personal history of nicotine dependence; Z88.0 Allergy status to penicillin
CPT/HCPCS: 36415; 51798; 74022; 74177; 80053; 80076; 81001; 81003; 81015; 83605; 85025; 85610; 85730; 93005; 96361; 96365; 96366; 96367; 96368; 96372; 96375; 96376; 99285; G0378; J0500; Q9967

== ENCOUNTER 2022-11-22 22:04 | Inpatient (IN) | payer MEDICAID, SELFPAY ==
[2022-11-22] VITALS (10 sets, daily range): BP systolic 122–141; BP diastolic 86–103; PULSE 90–109; RESP 8–18; TEMP 37.5; O2SAT 97; BMI 28.7
--- NOTE | 2022-11-22 22:22 | ECG_ITS ---
The [facility] Test Date: 2022-11-22 Pat Name: MILLIE PASTOR Department: Room: - Gender: Male [employer]: : 1990 Requested By: [id number] Order Number: [id number] Reading MD: ROBBI BALL Measurements Intervals [place] Rate: 91 P: 53 LA: 168 QRS: -52 QRSD: 92 T: -4 QT: 366 QTc: 414 Interpretive Statements 1100 Sinus rhythm 7200 Abnormal left axis deviation 9130 borderline ECG Compared to ECG 11/12/2022 08:58:02 Left-axis deviation now present Electronically Signed On 11-23-2022 20:26:16 EDT by ROBBI BALL
--- NOTE | 2022-11-22 22:22 | XR_ITS ---
The [address] [address] Patient Name: MILLIE PASTOR MRN: [id number] date: 1990 Sex: M Assigned Patient Location: ED.MAIN Current Patient Location: ER Accession/Order Number: [id number] Exam Date: 11/22/2022 23:08 Report Date: 11/22/2022 23:27 At the request of: BROWN TREVIZO Procedure: XR chest 1V EXAM: XR chest 1V HISTORY: pain , perforation COMPARISON: 11/11/2022. TECHNIQUE: AP view of the chest FINDINGS: The level of inspiration is suboptimal. There is no focal airspace consolidation. The cardiomediastinal silhouette is not enlarged. No evidence of pleural effusion or pneumothorax are identified. No acute osseous abnormality. XR/XR chest 1V IMPRESSION: No acute cardiopulmonary process. Electronically authenticated by: JENNIFER HENNESSYU Date: 11/22/2022 23:27
[2022-11-22 22:34] LABS: Basophils Absolute Auto 0.1 10^3/uL (0.0-0.1); Eosinophils Absolute Auto 0.1 10^3/uL (0.0-0.7); Hematocrit 48.2 % (42.0-54.0); Hemoglobin 17.1 g/dL (14.0-18.0); Immature Granulocytes Abs Auto 0.09 10^3/uL (0.00-0.03); Immature Granulocytes Pct Auto 0.9 % (0.0-0.5); Lymphocytes Absolute Auto 2.8 10^3/uL (1.2-3.8); Mean Corpuscular HGB Conc 35.5 g/dL (29.9-35.2); Mean Corpuscular Hemoglobin 32.3 pg (25.9-34.0); Mean Corpuscular Volume 90.9 fL (80.0-94.0); Mean Platelet Volume 11.4 fL (9.5-13.5); Monocytes Percent Auto 10.3 % (1.7-12.0); Neutrophils Absolute Auto 5.8 10^3/uL (1.4-6.5); Neutrophils Percent Auto 58.8 % (43.0-75.0); Platelet Count 246 10^3/uL (150-450); White Blood Count 9.8 10^3/uL (4.0-11.0)
[2022-11-22] MEDS: 0.9 % SODIUM CHLORIDE 1,000 ML 1000 ML IV (22:39)
[2022-11-22] MEDS: PROCHLORPERAZINE 10 MG/2 ML VIAL 5 MG IV (22:40)
[2022-11-22] MEDS: KETOROLAC TROMETHAMINE 30 MG/ML VIAL 15 MG IVP (22:40)
--- NOTE | 2022-11-22 22:41 | CT_ITS ---
[address] [address] Patient Name: MILLIE PASTOR MRN: [id number] date: 1990 Sex: M Assigned Patient Location: ER Current Patient Location: ER Accession/Order Number: [id number] Exam Date: 11/22/2022 23:08 Report Date: 11/22/2022 23:44 At the request of: BROWN TREVIZO Procedure: CT abdomen pelvis w con EXAM: CT SCAN ABDOMEN AND PELVIS WITH IV CONTRAST DATE: 11/22/2022 11:08 PM EDT HISTORY: left lower quadrant pain with diarrhea history diverticulitis recently discharged given antibiotics. Patient is increased. No evolving nausea and diarrhea COMPARISON: 11/11/2022 TECHNIQUE: CT examination of the abdomen and pelvis was performed following the intravenous administration of IV contrast. CT dose lowering techniques were used, to include: automated exposure control, adjustment for patient size, and/or use of iterative reconstruction. 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 Lower Chest: Normal Free Air: None. Liver: Normal Gallbladder: Normal Common Bile Duct: Normal Pancreas: Normal Spleen: Normal Adrenal Glands: Right: Normal Left: Normal Kidneys: Right Kidney: Normal. Right Ureter: Normal. Left Kidney: Normal. Left Ureter: Normal. GI Tract: Distal esophagus in FOV: Normal. Stomach: Decompressed Small Bowel: Normal Appendix: Normal on axial image 74 series 3 Large Bowel: Diverticulosis with diffuse edema and inflammation of the sigmoid colon. Mesentery/Peritoneum: Diffuse edema around the sigmoid colon. Vasculature: Aorta: Normal. IVC: Normal. Felice Vein: Normal. Retroperitoneum: Normal Abdominal/Pelvic Wall: Normal Bladder: There is mild edema of the bladder wall. Reproductive: Prostate is mildly enlarged Musculoskeletal: Normal Free Fluid: None. CT/CT abdomen pelvis w con IMPRESSION: 1. Acute diverticulitis with diffuse edema of the mesentery around the sigmoid colon. No drainable fluid collection. No abscess. However, there is phlegmon. 2. Normal appendix. Electronically authenticated by: TEZ GOMEZ Date: 11/22/2022 23:44
[2022-11-22] MEDS: FAMOTIDINE/PF 20 MG/2 ML VIAL IV (22:43)
[2022-11-22 22:49] LABS: INR 1.08; Prothrombin Time 11.4 sec (9.0-11.6)
--- NOTE | 2022-11-22 22:50 | ED.ABDPAIN1 ---
HPI - Abdominal Pain General Chief Complaint: Abdominal Pain Stated Complaint: Abdominal Pain Time Seen by Provider: 11/22/22 22:21 Source: patient Mode of arrival: walk-in History of Present Illness HPI narrative: The patient presented to us with a left lower quadrant pain that been going on at least since a week he was already diagnosed with diverticulitis a week ago discharged home on Wednesday he started having pain Wednesday which is almost 5 days ago, the pain in the left lower quadrant according to the patient is 10 out of 10 radiating to the back associated with nausea and vomiting this evening he did eat this morning The patient denies any changes in bowel movement that is new no constipation He has been taking his antibiotic as well Related Data Home Medications Medication Instructions Recorded Confirmed No Known Home Medications 11/11/22 11/11/22 Previous Rx's Medication Instructions Recorded levofloxacin 750 mg tablet 750 mg PO DAILY 10 days #10 tabs 11/14/22 metronidazole 500 mg tablet 500 mg PO Q8H 10 days #30 tabs 11/14/22 Allergies Allergy/AdvReac Type Severity Reaction Status Date / Time amoxicillin AdvReac Severe Verified 11/11/22 12:54 Review of Systems ROS Status of ROS 10 or more systems reviewed and unremarkable except as noted in history and below [facility] Medical History (Updated 11/23/22 @ 00:32 by Lanie Ghosh MD) Family History Grandfather Family history of cancer Family history of diabetes mellitus Family history of stroke Father Family history of hypertension Social History Within the past year, how often did you have a drink containing alcohol: monthly or less Within the past year, how many standard drinks containing alcohol did you have on a typical day: 1 or 2 Within the past year, how often did you have six or more drinks on one occasion: never Total score: 0 Score interpretation: A score less than 4 is consistent with normal alcohol consumption. 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 Highest level of school completed/degree received: high school graduate Are you now , , , , never or living with a partner: living with partner In a typical week, how many times do you talk on the telephone with family, friends, or neighbors: 3 or more times per week How often do you get together with friends or relatives: 3 or more times per week How often do you attend adventism or zoroastrian services: never Little interest or pleasure in doing things: not at all Feeling down, depressed, or hopeless: not at all Feel stressed/tense/nervous/anxious/difficulty sleeping: not at all Do you think of yourself as: straight/heterosexual Gender Identity: male Exam Narrative Exam Narrative: Nurses notes and vital signs reviewed and patient is not hypoxic. General: Well-appearing and in no apparent distress. Skin: Warm, dry, no pallor noted. No rash. Head: Normocephalic, atraumatic. Neck: Supple, non-tender. Eye: Pupils are equal, round and EOMI. No scleral icterus. Ears, Nose, Mouth, and Throat: TM are clear, no nasal mucosal hypertrophy. Oral mucosa is moist, no posterior oropharynx erythema, uvula is mid-line Cardiovascular: Regular Rate and Rhythm without murmur, gallop or rub. Respiratory: No accessory muscle use or respiratory distress. Lungs are clear to auscultation, no wheezing, rales or rhonchi Chest Wall: no tenderness Back: No midline thoracic or lumbar vertebral tenderness. No CVA tenderness Musculoskeletal: normal ROM, no calf or popliteal tenderness, no lower extremity edema/swelling GI: Abdomen is soft, non-distended. Normal bowel sounds. No masses appreciated. Left lower quadrant abdominal tenderness noted on examination but there is a soft abdomen Neurological: A&O x4. No cranial nerve dysfunction observed. No truncal ataxia. Moves all extremities. Sensation intact. Psychiatric: Cooperative and interactive. Normal mood and affect. Constitutional Vital Signs, click to edit/add: Last Vital Signs Temp 99.5 F 11/22/22 22:09 Pulse 91 H 11/22/22 23:40 Resp 17 11/22/22 23:40 BP 140/86 11/22/22 23:30 Pulse Ox 97 11/22/22 22:09 O2 Del Method Room Air 11/22/22 22:09 Course Vital Signs Vital signs: Vital Signs Temperature 99.5 F 11/22/22 22:09 Pulse Rate 109 H 11/22/22 22:09 Respiratory Rate 18 11/22/22 22:09 Blood Pressure 141/103 H 11/22/22 22:09 Pulse Oximetry 97 11/22/22 22:09 Oxygen Delivery Method Room Air 11/22/22 22:09 Temperature 99.5 F 11/22/22 22:09 Pulse Rate 91 H 11/22/22 23:40 Respiratory Rate 17 11/22/22 23:40 Blood Pressure 140/86 11/22/22 23:30 Pulse Oximetry 97 11/22/22 22:09 Oxygen Delivery Method Room Air 11/22/22 22:09 MDM - Abdominal Pain MDM Narrative Medical decision making narrative: The patient EKG showing sinus rhythm with a heart rate of [address] elevation or depression The patient on presentation was in distress and he was almost in a panic attack he was treated initially with Toradol and Pepcid as well as Zofran The patient CBC and chemistry showed no acute significant pathology except for mild dehydration signs of low sodium and low chloride in addition to elevation in the creatinine but that was with still within normal The patient had a CAT scan with contrast showing that he had edema of the sigmoid area in addition to phlegmon and I did speak with the radiologist to compare the results and there was no increase in his inflammation but there was no resolution yet The patient case was discussed with Dr. Rodríguez and right now will change antibiotic to Zosyn and the patient will be admitted for further evaluation I discussed the case with Dr. Truong and he agrees with the plan to admit the patient Lab Data Labs: Lab Results 11/22/22 11/22/22 11/23/22 Range/Units 22:20 22:55 00:05 WBC 9.8 (4.0-11.0) 10^3/uL RBC 5.30 (4.70-6.10) 10^6/uL Hgb 17.1 (14.0-18.0) g/dL Hct 48.2 (42.0-54.0) % MCV 90.9 (80.0-94.0) fL MCH 32.3 (25.9-34.0) pg MCHC 35.5 H (29.9-35.2) g/dL RDW 12.0 (11.0-15.0) % Plt Count 246 (150-450) 10^3/uL MPV 11.4 (9.5-13.5) fL Neut % (Auto) 58.8 (43.0-75.0) % Lymph % (Auto) 28.0 (20.5-60.0) % [place] % (Auto) 10.3 (1.7-12.0) % Eos % (Auto) 1.0 (0.9-7.0) % Baso % (Auto) 1.0 (0.2-2.0) % Neut # (Auto) 5.8 (1.4-6.5) 10^3/uL Lymph # (Auto) 2.8 (1.2-3.8) 10^3/uL [place] # (Auto) 1.0 H (0.3-0.8) 10^3/uL Eos # (Auto) 0.1 (0.0-0.7) 10^3/uL Baso # (Auto) 0.1 (0.0-0.1) 10^3/uL Abs Immat Gran (auto) 0.09 H (0.00-0.03) 10^3/uL Imm/Tot Granulo (auto) 0.9 H (0.0-0.5) % PT 11.4 (9.0-11.6) sec INR 1.08 Sodium 135 L (136-145) mmol/L Potassium 4.0 (3.5-5.1) mmol/L Chloride 97 L (98-107) mmol/L Carbon Dioxide 26.3 (21.0-32.0) mmol/L Anion Gap 15.7 BUN 14.0 (7.0-18.0) mg/dL Creatinine 1.25 (0.70-1.30) mg/dL Est GFR ( Amer) >60 (>=60) Est GFR (Non-Af Amer) >60 (>=60) BUN/Creatinine Ratio 11.2 Glucose 86 (74-106) mg/dL Calcium 9.2 (8.5-10.1) mg/dL Total Bilirubin 0.8 (0.2-1.0) mg/dL AST 29 (15-37) U/L ALT 38 (16-63) U/L Alkaline Phosphatase 53 (46-116) U/L Troponin I High Sens 5.0 (4.0-76.1) pg/mL Total Protein 8.1 (6.4-8.2) g/dL Albumin 4.1 (3.4-5.0) g/dL Globulin 4.0 g/dL Albumin/Globulin Ratio 1.0 Lipase 58.0 L (73.0-393.0) U/L Urine Color Yellow (YELLOW) Urine Clarity Clear (CLEAR) Urine pH 5.5 (5.0-9.0) Ur Specific [place] <=1.005 A (1.005-1.025) Urine Protein Negative (NEG/TRACE) mg/dL Urine Glucose (UA) Negative (NEGATIVE) mg/dL Urine Ketones 40 A (NEGATIVE) mg/dL Urine Occult Blood Negative (NEGATIVE) Urine Nitrite Negative (NEGATIVE) Urine Bilirubin Negative (NEGATIVE) Urine Urobilinogen 0.2 (0.2-1.0) EU/dL Ur Leukocyte Esterase Trace A (NEGATIVE) Urine RBC 0-2 (0-2) #/HPF Urine WBC 0-2 A (NONE SEEN) #/HPF Ur Squamous Epith Cells Rare (NONE/RARE) #/LPF Urine Crystals None seen (None Seen) #/HPF Urine Bacteria None seen (NONE SEEN) #/HPF Urine Casts None seen (NONE SEEN) #/LPF Urine Mucus None seen (NONE SEEN) Ur Culture Indicated? No POC Glucose 84 (74-106) mg/dL Discharge Plan Discharge Chief Complaint: Abdominal Pain Clinical Impression: Acute diverticulitis Patient Disposition: Admitted As Inpatient Time of Disposition Decision: 00:32 Condition: Good
[2022-11-22 22:55] LABS: Alanine Aminotransferase 38 U/L (16-63); Albumin Level 4.1 g/dL (3.4-5.0); Alkaline Phosphatase 53 U/L (46-116); Anion Gap 15.7; Aspartate Amino Transferase 29 U/L (15-37); BUN Creatinine Ratio 11.2; Bilirubin Total 0.8 mg/dL (0.2-1.0); Calcium 9.2 mg/dL (8.5-10.1); Carbon Dioxide 26.3 mmol/L (21.0-32.0); Chloride 97 mmol/L (98-107); Estimated GFR (African America >60 (>=60); Estimated GFR (Non-African Ame >60 (>=60); Glucose 86 mg/dL (74-106); Sodium 135 mmol/L (136-145); Total Protein 8.1 g/dL (6.4-8.2)
[2022-11-22 22:57] LABS: Glucometer 84 mg/dL (74-106)
[2022-11-23] VITALS (16 sets, daily range): BP systolic 107–137; BP diastolic 70–85; PULSE 69–101; RESP 9–21; TEMP 36.3–36.9; O2SAT 96–98; BMI 26.6
[2022-11-23 00:13] LABS: Bilirubin Urine NEGATIVE (NEGATIVE); Blood Urine NEGATIVE (NEGATIVE); Clarity Urine CLEAR (CLEAR); Color Urine YELLOW (YELLOW); Glucose Urine UA NEGATIVE (NEGATIVE); Ketones Urine 40 mg/dL (NEGATIVE); Leukocyte Esterase Urine TRACE (NEGATIVE); Nitrite Urine NEGATIVE (NEGATIVE); Protein Urine NEGATIVE (NEG/TRACE); Specific Gravity Urine <=1.005 (1.005-1.025); Urobilinogen Urine 0.2 EU/dL (0.2-1.0); pH Urine 5.5 (5.0-9.0)
[2022-11-23 00:16] LABS: Urine Microscopic Indicated YES
[2022-11-23 00:19] LABS: Bacteria Urine NONE SEEN #/HPF (NONE SEEN); Cast Seen? NONE SEEN #/LPF (NONE SEEN); Crystals Seen? None Seen #/HPF (None Seen); Mucus Urine NONE SEEN (NONE SEEN); RBC Urine 0-2 #/HPF (0-2); Squamous Epithelial Cell Urine RARE #/LPF (NONE/RARE); Urine Culture Indicated NO; WBC Urine 0-2 #/HPF (NONE SEEN)
[2022-11-23] MEDS: PIPERACILLIN SODIUM/TAZOBACTAM 3.375 GM in 0.9 % SODIUM CHLORIDE 50 ML IV ×3 (00:59→16:10)
--- NOTE | 2022-11-23 05:17 | W.PM.TELEPN ---
Progress Note: Subjective Subjective Interval history: Left lower quadrant pain HPI: This is a 32 years old male known to this facility from previous admission who presents with above complaints. Patient apparently has been treated for diverticulitis but his symptoms did not resolve. He presents now with worsening pain. He denies fevers or chills. Repeated images of the abdomen and pelvis revealed phlegmon adjacent to sigmoid colon without any signs of perforation or abscess formation. Unchanged from previous 1. A form consultation obtained from Dr. Rider, general surgery who recommended change antibiotic to Zosyn, he is going to follow this patient in consult. Exam Narrative Exam Narrative: Physical Exam: Not in distress, pleasant, lucid, cooperative, Head - atraumatic, eyes - pupils equal, round, reactive to light, extra ocular movement intact, MMM Neck - supple, thyroid not enlarged, LN not palpated Lungs - clear to auscultation, no dullness on percussion CVS - heart sounds S1, S2, no additional murmurs gallop, regular rate and rhythm Gastrointestinal?abdomen is soft, non-tender, non-distended, no organomegaly, positive bowel sounds Extremities no clubbing, cyanosis or edema Neurological?cranial nerve II?XII grossly intact, no meningeal signs, no cerebellar signs, no sensory deficit Musculoskeletal - DJD related changes in multiple joints, no effusions, ROM preserved Dermatological - the skin dry, warm, no rashes Psychiatric?patient is AAO X3, patient has normal affect Constitutional Vital Signs, click to edit/add: Last Vital Signs Temp 97.8 F 11/23/22 03:07 Pulse 88 11/23/22 03:07 Resp 16 11/23/22 03:07 BP 123/83 11/23/22 03:07 Pulse Ox 97 11/23/22 03:07 O2 Del Method Room Air 11/23/22 03:07 Progress Note: Objective Labs Labs: Short CBC 11/22/22 Range/Units 22:20 WBC 9.8 (4.0-11.0) 10^3/uL Hgb 17.1 (14.0-18.0) g/dL Hct 48.2 (42.0-54.0) % Plt Count 246 (150-450) 10^3/uL BMP 11/22/22 22:20 Sodium 135 L Potassium 4.0 Chloride 97 L Carbon Dioxide 26.3 BUN 14.0 Creatinine 1.25 Glucose 86 Calcium 9.2 Liver Function 11/22/22 Range/Units 22:20 Total Bilirubin 0.8 (0.2-1.0) mg/dL AST 29 (15-37) U/L ALT 38 (16-63) U/L Alkaline Phosphatase 53 (46-116) U/L Albumin 4.1 (3.4-5.0) g/dL Urine 11/23/22 Range/Units 00:05 Urine Color Yellow (YELLOW) Urine Clarity Clear (CLEAR) Urine pH 5.5 (5.0-9.0) Ur Specific [place] <=1.005 A (1.005-1.025) Urine Protein Negative (NEG/TRACE) mg/dL Urine Glucose (UA) Negative (NEGATIVE) mg/dL Progress Note: A&P Assessment and Plan (1) Acute diverticulitis: Assessment and Plan: Recurrent diverticulitis this?admit to medical floor Bowel rest Symptoms controlled IV Zosyn Follow-up with Dr. Cedillo for further recommendations (2) Elevated BP without diagnosis of hypertension: Assessment and Plan: Verify and resume home medications, adjust as needed Plan As the provider for the telehealth service, I attest that I introduced myself to the patient, provided my credentials, disclosed by location and determined that based on a review of the patient's chart and discussion with members of the patient's treatment team, telemedicine via real-time, 2 way, and interactive audio and video platform is an appropriate and effective means of providing the service. ?The patient and I mutually agree this visit is appropriate for telemedicine. ?The virtual encounter was taken place from? [place], [place]. ?The encounter took approximately 35 minutes. ?The nurse was present during the entire time and I was able to move the stethoscope in appropriate directions. ?The patient was evaluated at the Hospital ? Portions of this note may be dictated using [employer] voice recognition software. Variances in spelling and vocabulary are possible and unintentional. Not all errors may be caught and/or corrected. Please notify the author if any discrepancies are noted and/or if the meaning of any statement is unclear.? ? Patient verbally consented for treatment via video visit with patient currently located at [facility] and provider located in [facility] Telemedicine Attestation Telemedicine Attestation I conducted this encounter from [[place]] via secure live, [id number] video conference with the patient, located at [facility] with [diverticulitis]. Prior to the interview, the risks and benefits of telemedicine were discussed with the patient and verbal consent was obtained.
[2022-11-23] MEDS: 0.9 % SODIUM CHLORIDE 1,000 ML 100 ML IV ×2 (05:48→22:34)
[2022-11-23 06:24] LABS: Alanine Aminotransferase 32 U/L (16-63); Albumin Level 3.2 g/dL (3.4-5.0); Alkaline Phosphatase 42 U/L (46-116); Anion Gap 13.8; Aspartate Amino Transferase 15 U/L (15-37); BUN Creatinine Ratio 13.4; Bilirubin Total 0.6 mg/dL (0.2-1.0); Calcium 8.5 mg/dL (8.5-10.1); Carbon Dioxide 25.1 mmol/L (21.0-32.0); Chloride 101 mmol/L (98-107); Estimated GFR (African America >60 (>=60); Estimated GFR (Non-African Ame >60 (>=60); Globulin 3.3 g/dL; Glucose 84 mg/dL (74-106); Potassium 3.9 mmol/L (3.5-5.1); Sodium 136 mmol/L (136-145); Total Protein 6.5 g/dL (6.4-8.2)
--- NOTE | 2022-11-23 09:45 | P.HP_ITS ---
H&P: HPI History of Present Illness Chief complaint: Abdominal Pain, ACUTE DIVERTICULITIS Narrative: Was recently hospitalized with diverticulitis. Patient was taking his antibiotics at home. Started having increasing pain with fevers consistent with his previous diagnosis of the diverticulitis. He presented to the emergency room and had confirmed diagnosis of acute diverticulitis with possible phlegmon formation. No abscess. Patient admitted for IV antibiotics and continued work- up patient would prefer not to have surgical option at this time Review of Systems ROS Status of ROS 10 or more systems reviewed and unremarkable except as noted in history and below [facility] Medical History (Updated 11/23/22 @ 00:32 by Lanie Ghosh MD) Family History Grandfather Family history of cancer Family history of diabetes mellitus Family history of stroke Father Family history of hypertension Social History Within the past year, how often did you have a drink containing alcohol: monthly or less Within the past year, how many standard drinks containing alcohol did you have on a typical day: 1 or 2 Within the past year, how often did you have six or more drinks on one occasion: never Total score: 0 Score interpretation: A score less than 4 is consistent with normal alcohol consumption. 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 Highest level of school completed/degree received: high school graduate Are you now , , , , never or living with a partner: living with partner In a typical week, how many times do you talk on the telephone with family, friends, or neighbors: 3 or more times per week How often do you get together with friends or relatives: 3 or more times per week How often do you attend taoist or anabaptist services: never Little interest or pleasure in doing things: not at all Feeling down, depressed, or hopeless: not at all Feel stressed/tense/nervous/anxious/difficulty sleeping: not at all Do you think of yourself as: straight/heterosexual Gender Identity: male Meds Home Medications and Allergies Home Medications Medication Instructions Recorded Confirmed Type No Known Home Medications 11/11/22 11/11/22 History metronidazole 500 mg tablet 500 mg PO Q8H 10 days #30 tabs 11/14/22 11/23/22 Rx Allergies Allergy/AdvReac Type Severity Reaction Status Date / Time amoxicillin AdvReac Severe Verified 11/11/22 12:54 Exam Constitutional Vital Signs, click to edit/add: Last Vital Signs Temp 97.4 F L 11/23/22 05:49 Pulse 69 11/23/22 05:49 Resp 16 11/23/22 05:49 BP 109/70 11/23/22 05:49 Pulse Ox 96 11/23/22 05:49 O2 Del Method Room Air 11/23/22 05:49 Documenting provider has reviewed patient's vital signs: yes Common normals: no apparent distress HENMT Common normals: normocephalic Respiratory Common normals: normal respiratory effort, no retractions and clear to auscultation bilaterally Cardio Common normals: regular rate, regular rhythm and no murmurs GI Common normals: Normal to inspection, nondistended, normoactive bowel sounds present, soft to palpation and no hepatosplenomegaly; tender (Left lower quadrant tenderness) Results Labs Labs: Short CBC 11/22/22 Range/Units 22:20 WBC 9.8 (4.0-11.0) 10^3/uL Hgb 17.1 (14.0-18.0) g/dL Hct 48.2 (42.0-54.0) % Plt Count 246 (150-450) 10^3/uL BMP 11/22/22 11/23/22 22:20 05:44 Sodium 135 L 136 Potassium 4.0 3.9 Chloride 97 L 101 Carbon Dioxide 26.3 25.1 BUN 14.0 13.0 Creatinine 1.25 0.97 Glucose 86 84 Calcium 9.2 8.5 Liver Function 11/22/22 11/23/22 Range/Units 22:20 05:44 Total Bilirubin 0.8 0.6 (0.2-1.0) mg/dL AST 29 15 (15-37) U/L ALT 38 32 (16-63) U/L Alkaline Phosphatase 53 42 L (46-116) U/L Albumin 4.1 3.2 L (3.4-5.0) g/dL Urine 11/23/22 Range/Units 00:05 Urine Color Yellow (YELLOW) Urine Clarity Clear (CLEAR) Urine pH 5.5 (5.0-9.0) Ur Specific [place] <=1.005 A (1.005-1.025) Urine Protein Negative (NEG/TRACE) mg/dL Urine Glucose (UA) Negative (NEGATIVE) mg/dL Assessment and Plan Assessment and Plan (1) Acute diverticulitis: (2) Elevated BP without diagnosis of hypertension: Plan Sinus tachycardia, uncontrolled hypertension, acute abdomen secondary to diverticulitis secondary to failed outpatient treatment of acute diverticulitis. Continue patient on IV antibiotics. As long as his exam improves over the next 24 to 48 hours and can maintain without surgical option. No signs of obstruction, no rebound tenderness, according to others that were around well with his last admission his abdomen is more tender than previous. Hypertension-this is likely related to the above-we will monitor daily Patient likely to have with 3 to 4-day hospital stay with failed outpatient treatment with oral antibiotics.Maintain patient on IV antibiotics.Serial labs. Serial exams. Possible surgical consultation the patient would prefer to hold off on that at the present time
--- NOTE | 2022-11-23 09:47 | CM.NOTE ---
Rounds made with Dr. Castro. Dr. Castro explained NPO status and need for IV antibiotics for several days. No discharge today.
[2022-11-23] MEDS: HYOSCYAMINE SULFATE 0.125 MG TAB.SUBL SL ×2 (11:32→15:33)
[2022-11-24] MEDS: PIPERACILLIN SODIUM/TAZOBACTAM 3.375 GM in 0.9 % SODIUM CHLORIDE 50 ML IV ×3 (01:22→17:29)
[2022-11-24 04:51] VITALS: BP 113/71; PULSE 71; RESP 18; TEMP 36.4; O2SAT 96
[2022-11-24 05:01] LABS: Basophils Absolute Auto 0.1 10^3/uL (0.0-0.1); Eosinophils Absolute Auto 0.1 10^3/uL (0.0-0.7); Eosinophils Percent Auto 1.6 % (0.9-7.0); Hematocrit 41.4 % (42.0-54.0); Immature Granulocytes Abs Auto 0.05 10^3/uL (0.00-0.03); Immature Granulocytes Pct Auto 0.8 % (0.0-0.5); Lymphocytes Absolute Auto 1.8 10^3/uL (1.2-3.8); Lymphocytes Percent Auto 29.1 % (20.5-60.0); Mean Corpuscular HGB Conc 33.8 g/dL (29.9-35.2); Mean Corpuscular Hemoglobin 31.7 pg (25.9-34.0); Mean Corpuscular Volume 93.9 fL (80.0-94.0); Mean Platelet Volume 11.3 fL (9.5-13.5); Monocytes Absolute Auto 0.7 10^3/uL (0.3-0.8); Monocytes Percent Auto 10.5 % (1.7-12.0); Neutrophils Absolute Auto 3.6 10^3/uL (1.4-6.5); Platelet Count 192 10^3/uL (150-450); Red Blood Count 4.41 10^6/uL (4.70-6.10); White Blood Count 6.3 10^3/uL (4.0-11.0)
[2022-11-24 05:14] LABS: Anion Gap 12.4; BUN Creatinine Ratio 11.1; C Reactive Protein 1.7 mg/dL (<=1.0); Calcium 8.5 mg/dL (8.5-10.1); Carbon Dioxide 26.7 mmol/L (21.0-32.0); Chloride 103 mmol/L (98-107); Estimated GFR (African America >60 (>=60); Estimated GFR (Non-African Ame >60 (>=60); Glucose 75 mg/dL (74-106); Potassium 4.1 mmol/L (3.5-5.1); Sodium 138 mmol/L (136-145)
[2022-11-24] MEDS: ACETAMINOPHEN 325 MG TABLET 650 MG PO (08:38)
[2022-11-24] MEDS: HYOSCYAMINE SULFATE 0.125 MG TAB.SUBL SL ×3 (08:40→16:30)
[2022-11-24] MEDS: 0.9 % SODIUM CHLORIDE 1,000 ML 100 ML IV (08:40)
--- NOTE | 2022-11-24 10:15 | CM.NOTE ---
Rounds made with Dr. Castro, continue NPO status. Pt continues with abdominal pain, no discharge today.
--- NOTE | 2022-11-24 10:26 | P.PN_ITS ---
Progress Note: Subjective Subjective Interval history: Patient states pain is somewhat better today. Exam Constitutional Vital Signs, click to edit/add: Last Vital Signs Temp 97.5 F L 11/24/22 04:51 Pulse 71 11/24/22 04:51 Resp 18 11/24/22 04:51 BP 113/71 11/24/22 04:51 Pulse Ox 96 11/24/22 04:51 O2 Del Method Room Air 11/24/22 04:51 Documenting provider has reviewed patient's vital signs: yes Common normals: no apparent distress HENMT Common normals: normocephalic Respiratory Common normals: normal respiratory effort, no retractions and clear to auscultation bilaterally Cardio Common normals: regular rate, regular rhythm and no murmurs GI Common normals: Normal to inspection, nondistended, normoactive bowel sounds present, soft to palpation and no hepatosplenomegaly; tender (Left lower quadrant tenderness) Progress Note: Objective Labs Labs: Short CBC 11/24/22 Range/Units 04:44 WBC 6.3 (4.0-11.0) 10^3/uL Hgb 14.0 (14.0-18.0) g/dL Hct 41.4 L (42.0-54.0) % Plt Count 192 (150-450) 10^3/uL BMP 11/24/22 04:44 Sodium 138 Potassium 4.1 Chloride 103 Carbon Dioxide 26.7 BUN 11.0 Creatinine 0.99 Glucose 75 Calcium 8.5 Progress Note: A&P Assessment and Plan (1) Acute diverticulitis: (2) Elevated BP without diagnosis of hypertension: Plan Sinus tachycardia, uncontrolled hypertension, acute abdomen secondary to diverticulitis secondary to failed outpatient treatment of acute diverticulitis.? Continue patient on IV antibiotics.? As long as his exam improves over the next 24 to 48 hours and can maintain without surgical option.? Pain overall improved-we will maintain current antibiotics, consider repeat CT scan tomorrow Hypertension-this is likely related to the above-we will monitor daily Patient likely to have with 3 to 4-day hospital stay with failed outpatient treatment with oral antibiotics.Maintain patient on IV antibiotics.Serial labs.? Serial exams.? Possible surgical consultation the patient would prefer to hold off on that at the present time
[2022-11-24 10:50] VITALS: O2SAT 96
[2022-11-24 13:17] VITALS: BP 134/89; PULSE 70; RESP 16; TEMP 36.2; O2SAT 98
[2022-11-24 13:54] VITALS: BMI 26.5
--- NOTE | 2022-11-24 14:05 | DIETREC ---
Nutrition Recommendations: 1. Add Ensure Clear BID once diet is advanced. 2. Advance diet to Low Fiber as tolerated. Reviewed with
[2022-11-24 15:11] VITALS: BMI 26.3
[2022-11-24 19:26] VITALS: O2SAT 97
[2022-11-25] VITALS (7 sets, daily range): BP systolic 128–144; BP diastolic 77–93; PULSE 72–87; RESP 16–18; TEMP 36.6–36.8; O2SAT 95–97
[2022-11-25] MEDS: 0.9 % SODIUM CHLORIDE 1,000 ML 100 ML IV ×2 (00:22→09:20)
[2022-11-25] MEDS: PIPERACILLIN SODIUM/TAZOBACTAM 3.375 GM in 0.9 % SODIUM CHLORIDE 50 ML IV ×3 (01:07→17:10)
[2022-11-25 05:38] LABS: Basophils Absolute Auto 0.1 10^3/uL (0.0-0.1); Basophils Percent Auto 1.2 % (0.2-2.0); Eosinophils Absolute Auto 0.1 10^3/uL (0.0-0.7); Eosinophils Percent Auto 2.2 % (0.9-7.0); Hematocrit 41.7 % (42.0-54.0); Hemoglobin 14.7 g/dL (14.0-18.0); Immature Granulocytes Abs Auto 0.04 10^3/uL (0.00-0.03); Immature Granulocytes Pct Auto 0.7 % (0.0-0.5); Lymphocytes Absolute Auto 1.7 10^3/uL (1.2-3.8); Lymphocytes Percent Auto 28.7 % (20.5-60.0); Mean Corpuscular HGB Conc 35.3 g/dL (29.9-35.2); Mean Corpuscular Hemoglobin 32.3 pg (25.9-34.0); Mean Corpuscular Volume 91.6 fL (80.0-94.0); Mean Platelet Volume 11.5 fL (9.5-13.5); Monocytes Absolute Auto 0.7 10^3/uL (0.3-0.8); Monocytes Percent Auto 11.3 % (1.7-12.0); Neutrophils Absolute Auto 3.3 10^3/uL (1.4-6.5); Neutrophils Percent Auto 55.9 % (43.0-75.0); Platelet Count 210 10^3/uL (150-450); Red Blood Count 4.55 10^6/uL (4.70-6.10); Red Cell Distribution Width 11.9 % (11.0-15.0); White Blood Count 5.9 10^3/uL (4.0-11.0)
[2022-11-25 05:55] LABS: Anion Gap 16.7; BUN Creatinine Ratio 9.6; Calcium 8.3 mg/dL (8.5-10.1); Carbon Dioxide 22.2 mmol/L (21.0-32.0); Chloride 104 mmol/L (98-107); Estimated GFR (African America >60 (>=60); Estimated GFR (Non-African Ame >60 (>=60); Glucose 61 mg/dL (74-106); Potassium 3.9 mmol/L (3.5-5.1); Sodium 139 mmol/L (136-145)
[2022-11-25] MEDS: HYOSCYAMINE SULFATE 0.125 MG TAB.SUBL SL ×2 (09:20→17:10)
--- NOTE | 2022-11-25 09:27 | P.GSCN_ITS ---
History of Present Illness Consult details Consult date: 11/25/22 Reason for consult: abdominal pain Requesting physician: Nikolas Castro Narrative: 32-year-old male presented to the Emergency Department with continued fever and chills and left-sided abdominal pain. He was treated recently for diverticulitis with a small abscess. CAT scan of the abdomen and pelvis shows mesenteric edema but no drainable abscess and possible phlegmon formation. He was taking antibiotics at home. He had been sent home on Levaquin and flagyl.He has had failed outpatient treatment of acute diverticulitis. I was asked to consult by his primary care physician. Review of Systems ROS Status of ROS 10 or more systems reviewed and unremarkable except as noted in history and below [facility] Medical History (Updated 11/23/22 @ 00:32 by Lanie Ghosh MD) Family History Grandfather Family history of cancer Family history of diabetes mellitus Family history of stroke Father Family history of hypertension Social History Within the past year, how often did you have a drink containing alcohol: monthly or less Within the past year, how many standard drinks containing alcohol did you have on a typical day: 1 or 2 Within the past year, how often did you have six or more drinks on one occasion: never Total score: 0 Score interpretation: A score less than 4 is consistent with normal alcohol consumption. Smoking status: Never smoker Non-prescribed substance use: denies use Previous occupational history: [employer] Highest level of school completed/degree received: high school graduate Are you now , , , , never or living with a partner: living with partner In a typical week, how many times do you talk on the telephone with family, friends, or neighbors: 3 or more times per week How often do you get together with friends or relatives: 3 or more times per week How often do you attend mosque or uatsdin services: never Little interest or pleasure in doing things: not at all Feeling down, depressed, or hopeless: not at all Feel stressed/tense/nervous/anxious/difficulty sleeping: not at all Do you think of yourself as: straight/heterosexual Gender Identity: male Meds Home Medications and Allergies Home Medications Medication Instructions Recorded Confirmed Type No Known Home Medications 11/11/22 11/11/22 History metronidazole 500 mg tablet 500 mg PO Q8H 10 days #30 tabs 11/14/22 11/23/22 Rx Allergies Allergy/AdvReac Type Severity Reaction Status Date / Time amoxicillin AdvReac Severe Verified 11/11/22 12:54 Exam Constitutional Vital Signs, click to edit/add: Last Vital Signs Temp 98 F 11/25/22 05:45 Pulse 79 11/25/22 05:45 Resp 18 11/25/22 05:45 BP 128/77 11/25/22 05:45 Pulse Ox 97 11/25/22 05:45 O2 Del Method Room Air 11/25/22 05:45 Results Labs Labs: Abnormal lab results 11/25/22 Range/Units 05:05 RBC 4.55 L (4.70-6.10) 10^6/uL Hct 41.7 L (42.0-54.0) % MCHC 35.3 H (29.9-35.2) g/dL Abs Immat Gran (auto) 0.04 H (0.00-0.03) 10^3/uL Imm/Tot Granulo (auto) 0.7 H (0.0-0.5) % Glucose 61 L (74-106) mg/dL Calcium 8.3 L (8.5-10.1) mg/dL Diabetes panel 11/25/22 Range/Units 05:05 Sodium 139 (136-145) mmol/L Potassium 3.9 (3.5-5.1) mmol/L Chloride 104 (98-107) mmol/L Carbon Dioxide 22.2 (21.0-32.0) mmol/L BUN 9.0 (7.0-18.0) mg/dL Creatinine 0.94 (0.70-1.30) mg/dL Glucose 61 L (74-106) mg/dL Calcium 8.3 L (8.5-10.1) mg/dL Calcium panel 11/25/22 Range/Units 05:05 Calcium 8.3 L (8.5-10.1) mg/dL Pituitary panel 11/25/22 Range/Units 05:05 Sodium 139 (136-145) mmol/L Potassium 3.9 (3.5-5.1) mmol/L Chloride 104 (98-107) mmol/L Carbon Dioxide 22.2 (21.0-32.0) mmol/L BUN 9.0 (7.0-18.0) mg/dL Creatinine 0.94 (0.70-1.30) mg/dL Glucose 61 L (74-106) mg/dL Calcium 8.3 L (8.5-10.1) mg/dL Adrenal panel 11/25/22 Range/Units 05:05 Sodium 139 (136-145) mmol/L Potassium 3.9 (3.5-5.1) mmol/L Chloride 104 (98-107) mmol/L Carbon Dioxide 22.2 (21.0-32.0) mmol/L BUN 9.0 (7.0-18.0) mg/dL Creatinine 0.94 (0.70-1.30) mg/dL Glucose 61 L (74-106) mg/dL Calcium 8.3 L (8.5-10.1) mg/dL All other labs normal. Assessment and Plan Assessment and Plan (1) Acute diverticulitis: (2) Elevated BP without diagnosis of hypertension: Plan Sinus tachycardia, uncontrolled hypertension, acute abdomen secondary to diverticulitis secondary to failed outpatient treatment of acute diverticulitis. Continue patient on IV antibiotics. As long as his exam improves over the next 24 to 48 hours and can maintain without surgical option. No signs of obstruction, no rebound tenderness, according to others that were around well with his last admission his abdomen is more tender than previous. Hypertension-this is likely related to the above-we will monitor daily Patient likely to have with 3 to 4-day hospital stay with failed outpatient treatment with oral antibiotics.Maintain patient on IV antibiotics.Serial labs. Serial exams. Possible surgical consultation the patient would prefer to hold off on that at the present time continue IV antibiotics
--- NOTE | 2022-11-25 10:14 | P.PN_ITS ---
Progress Note: Subjective Subjective Interval history: Patient states pain is somewhat better today. Appears more comfortable Exam Constitutional Vital Signs, click to edit/add: Last Vital Signs Temp 98 F 11/25/22 05:45 Pulse 79 11/25/22 05:45 Resp 18 11/25/22 05:45 BP 128/77 11/25/22 05:45 Pulse Ox 97 11/25/22 05:45 O2 Del Method Room Air 11/25/22 05:45 Common normals: no apparent distress Chest Common normals: inspection of chest normal Respiratory Common normals: normal respiratory effort, no retractions, no use of accessory muscles and clear to auscultation bilaterally Cardio Common normals: regular rate and regular rhythm GI Common normals: Normal to inspection, nondistended, normoactive bowel sounds present and soft to palpation; tender Palpation: tender (Still predominantly left lower quadrant but is definitely improved from pre) and guarding (Much better compared to yesterday) Progress Note: Objective Labs Labs: Short CBC 11/25/22 Range/Units 05:05 WBC 5.9 (4.0-11.0) 10^3/uL Hgb 14.7 (14.0-18.0) g/dL Hct 41.7 L (42.0-54.0) % Plt Count 210 (150-450) 10^3/uL BMP 11/25/22 05:05 Sodium 139 Potassium 3.9 Chloride 104 Carbon Dioxide 22.2 BUN 9.0 Creatinine 0.94 Glucose 61 L Calcium 8.3 L Progress Note: A&P Assessment and Plan (1) Acute diverticulitis: (2) Elevated BP without diagnosis of hypertension: Plan Sinus tachycardia, uncontrolled hypertension, acute abdomen secondary to diverticulitis secondary to failed outpatient treatment of acute diverticulitis.? Definitely better today. Previous surgeon is a will be on consult. Likely advance diet. We will hold off on CT scan Hypertension-this is likely related to the above-we will monitor daily Patient likely to have with 3 to 4-day hospital stay with failed outpatient treatment with oral antibiotics.Maintain patient on IV antibiotics.Serial labs.? Serial exams.? Possible surgical consultation the patient would prefer to hold off on that at the present time
--- NOTE | 2022-11-25 10:24 | CM.NOTE ---
Rounds made with Dr. Castro. General Surgery consult added and discussed with Mr. Quesada. Verbalizes understanding. No plan for discharge today.
[2022-11-25] MEDS: 0.9 % SODIUM CHLORIDE 1,000 ML 60 ML IV (19:49)
[2022-11-26] MEDS: PIPERACILLIN SODIUM/TAZOBACTAM 3.375 GM in 0.9 % SODIUM CHLORIDE 50 ML IV ×3 (01:54→18:15)
[2022-11-26 04:55] VITALS: O2SAT 97
[2022-11-26 05:04] LABS: Basophils Absolute Auto 0.1 10^3/uL (0.0-0.1); Basophils Percent Auto 0.9 % (0.2-2.0); Eosinophils Absolute Auto 0.1 10^3/uL (0.0-0.7); Eosinophils Percent Auto 1.4 % (0.9-7.0); Hematocrit 43.2 % (42.0-54.0); Hemoglobin 15.1 g/dL (14.0-18.0); Immature Granulocytes Abs Auto 0.06 10^3/uL (0.00-0.03); Immature Granulocytes Pct Auto 0.7 % (0.0-0.5); Lymphocytes Absolute Auto 1.8 10^3/uL (1.2-3.8); Lymphocytes Percent Auto 21.5 % (20.5-60.0); Mean Corpuscular Hemoglobin 32.1 pg (25.9-34.0); Mean Corpuscular Volume 91.9 fL (80.0-94.0); Mean Platelet Volume 11.3 fL (9.5-13.5); Monocytes Percent Auto 11.3 % (1.7-12.0); Neutrophils Absolute Auto 5.4 10^3/uL (1.4-6.5); Neutrophils Percent Auto 64.2 % (43.0-75.0); Platelet Count 212 10^3/uL (150-450); Red Cell Distribution Width 11.9 % (11.0-15.0); White Blood Count 8.4 10^3/uL (4.0-11.0)
[2022-11-26 05:18] LABS: Anion Gap 16.4; BUN Creatinine Ratio 6.9; C Reactive Protein 0.4 mg/dL (<=1.0); Calcium 8.4 mg/dL (8.5-10.1); Carbon Dioxide 23.4 mmol/L (21.0-32.0); Chloride 102 mmol/L (98-107); Estimated GFR (African America >60 (>=60); Estimated GFR (Non-African Ame >60 (>=60); Glucose 66 mg/dL (74-106); Potassium 3.8 mmol/L (3.5-5.1); Sodium 138 mmol/L (136-145)
[2022-11-26 06:00] VITALS: BP 118/79; PULSE 71; RESP 18; TEMP 36.6; O2SAT 97
[2022-11-26] MEDS: HYOSCYAMINE SULFATE 0.125 MG TAB.SUBL SL ×3 (08:13→17:02)
--- NOTE | 2022-11-26 08:36 | CM.NOTE ---
Rounds made with Dr. Castro, no discharge today. Advance pt's diet to see if able to tolerate, if tolerates diet possible discharge tomorrow.
--- NOTE | 2022-11-26 09:00 | P.PN_ITS ---
Progress Note: Subjective Subjective Interval history: Patient is having to clear liquid diet yesterday. He did state he had slight increase in his pain with the eating part but otherwise feels improved each day. Exam Constitutional Vital Signs, click to edit/add: Last Vital Signs Temp 97.8 F 11/26/22 06:00 Pulse 71 11/26/22 06:00 Resp 18 11/26/22 06:00 BP 118/79 11/26/22 06:00 Pulse Ox 97 11/26/22 06:00 O2 Del Method Room Air 11/26/22 06:00 Common normals: no apparent distress Chest Common normals: inspection of chest normal Respiratory Common normals: normal respiratory effort, no retractions, no use of accessory muscles and clear to auscultation bilaterally Cardio Common normals: regular rate and regular rhythm GI Common normals: Normal to inspection, nondistended, normoactive bowel sounds present and soft to palpation; tender Palpation: tender (Still predominantly left lower quadrant but is definitely improved from pre) and guarding (Much better compared to yesterday) Progress Note: Objective Labs Labs: Short CBC 11/26/22 Range/Units 04:46 WBC 8.4 (4.0-11.0) 10^3/uL Hgb 15.1 (14.0-18.0) g/dL Hct 43.2 (42.0-54.0) % Plt Count 212 (150-450) 10^3/uL BMP 11/26/22 04:46 Sodium 138 Potassium 3.8 Chloride 102 Carbon Dioxide 23.4 BUN 6.0 L Creatinine 0.87 Glucose 66 L Calcium 8.4 L Progress Note: A&P Assessment and Plan (1) Acute diverticulitis: (2) Elevated BP without diagnosis of hypertension: Plan Sinus tachycardia, uncontrolled hypertension, acute abdomen secondary to diverticulitis secondary to failed outpatient treatment of acute diverticulitis.? Advance diet again today. If stable tomorrow with no significant increase in pain likely discharged home. If he does have increasing pain will need to get repeat CT scan with contrast. CRP is improving Hypertension-this is likely related to the above-we will monitor daily Patient likely to have with 3 to 4-day hospital stay with failed outpatient treatment with oral antibiotics.Maintain patient on IV antibiotics.Serial labs.? Serial exams.? Possible surgical consultation the patient would prefer to hold off on that at the present time
[2022-11-26 10:42] VITALS: O2SAT 97
[2022-11-26 14:00] VITALS: BP 125/73; PULSE 75; TEMP 36.8; O2SAT 97
--- NOTE | 2022-11-26 14:38 | PM.GSPN ---
Progress Note: A&P Assessment and Plan (1) Acute diverticulitis: (2) Elevated BP without diagnosis of hypertension: Plan recommend continue IV antibiotics and when discharged send home with by mouth Cipro or Levaquin with Flagyl for another ten days to two weeks. Or could consider Augmentin instead of the Flagyl and Cipro or Levaquin. Thanks Subjective Subjective Patient reports: no new complaints, feels better, pain is less and tolerating a regular diet Exam Constitutional Vital Signs, click to edit/add: Last Vital Signs Temp 98.2 F 11/26/22 14:00 Pulse 75 11/26/22 14:00 Resp 18 11/26/22 06:00 BP 125/73 11/26/22 14:00 Pulse Ox 97 11/26/22 14:00 O2 Del Method Room Air 11/26/22 14:00
[2022-11-26 21:34] VITALS: BP 118/73; PULSE 74; RESP 18; TEMP 36.8; O2SAT 96
[2022-11-26 21:39] VITALS: O2SAT 99
[2022-11-27] MEDS: PIPERACILLIN SODIUM/TAZOBACTAM 3.375 GM in 0.9 % SODIUM CHLORIDE 50 ML IV ×2 (01:36→09:12)
[2022-11-27 04:16] VITALS: O2SAT 97
[2022-11-27 05:16] LABS: Basophils Absolute Auto 0.1 10^3/uL (0.0-0.1); Basophils Percent Auto 1.1 % (0.2-2.0); Eosinophils Absolute Auto 0.1 10^3/uL (0.0-0.7); Eosinophils Percent Auto 1.6 % (0.9-7.0); Hematocrit 41.9 % (42.0-54.0); Hemoglobin 14.8 g/dL (14.0-18.0); Immature Granulocytes Abs Auto 0.04 10^3/uL (0.00-0.03); Immature Granulocytes Pct Auto 0.6 % (0.0-0.5); Lymphocytes Absolute Auto 2.2 10^3/uL (1.2-3.8); Lymphocytes Percent Auto 31.3 % (20.5-60.0); Mean Corpuscular HGB Conc 35.3 g/dL (29.9-35.2); Mean Corpuscular Hemoglobin 32.6 pg (25.9-34.0); Mean Corpuscular Volume 92.3 fL (80.0-94.0); Mean Platelet Volume 11.4 fL (9.5-13.5); Monocytes Percent Auto 14.1 % (1.7-12.0); Neutrophils Absolute Auto 3.6 10^3/uL (1.4-6.5); Neutrophils Percent Auto 51.3 % (43.0-75.0); Platelet Count 242 10^3/uL (150-450); Red Blood Count 4.54 10^6/uL (4.70-6.10)
[2022-11-27 05:24] LABS: BUN Creatinine Ratio 8.2; Calcium 8.4 mg/dL (8.5-10.1); Carbon Dioxide 29.1 mmol/L (21.0-32.0); Chloride 108 mmol/L (98-107); Estimated GFR (African America >60 (>=60); Estimated GFR (Non-African Ame >60 (>=60); Glucose 96 mg/dL (74-106); Potassium 4.1 mmol/L (3.5-5.1); Sodium 143 mmol/L (136-145)
[2022-11-27 05:54] VITALS: BP 121/77; PULSE 67; RESP 18; TEMP 36.5; O2SAT 96
[2022-11-27] MEDS: HYOSCYAMINE SULFATE 0.125 MG TAB.SUBL SL (08:02)
--- NOTE | 2022-11-27 09:18 | P.DS_ITS ---
DS: Providers Provider Date of admission: 11/23/22 01:13 Primary care physician: SAYDA MANCUSO Consults: 11/25/22 07:36 Consult to General Surgeon Routine Consulting Provider: Venkat Clayton DS: Diagnosis Discharge Diagnosis (1) Acute diverticulitis: (2) Elevated BP without diagnosis of hypertension: Plan Sinus tachycardia, uncontrolled hypertension, acute abdomen secondary to diverticulitis secondary to failed outpatient treatment of acute diverticulitis.? Hypertension DS: Summary Hospital Course Hospital Course: Patient with a recurrence of diverticulitis readmitted secondary to increasing pain and fever. Antibiotics were changed. He tolerated the antibiotics. No significant diarrhea. Still have persistent pain. But his pain improved daily. Did have a repeat evaluation with surgeon although surgical option did not seem highly likely. He agreed. Patient diet was advanced slowly secondary to increasing his pain last time was increased. He did clear liquids the day before yesterday and full low-fat meals yesterday. Does have some increasing pain but not significant to him at least not like before. At this point will be discharged home in improving condition. Medications see list. Follow-up with PCP within the next week. Time Spent with Patient Time attestation: Total time spent providing and/or coordinating discharge services: Exam Constitutional Vital Signs, click to edit/add: Last Vital Signs Temp 97.7 F 11/27/22 05:54 Pulse 67 11/27/22 05:54 Resp 18 11/27/22 05:54 BP 121/77 11/27/22 05:54 Pulse Ox 96 11/27/22 05:54 O2 Del Method Room Air 11/27/22 05:54 Common normals: no apparent distress Chest Common normals: inspection of chest normal Respiratory Common normals: normal respiratory effort, no retractions, no use of accessory muscles and clear to auscultation bilaterally Cardio Common normals: regular rate and regular rhythm GI Common normals: Normal to inspection, nondistended, normoactive bowel sounds present and soft to palpation; tender Palpation: tender (Still predominantly left lower quadrant but is definitely improved from pre) and guarding (Much better compared to yesterday) DS: Data Data Completed and Pending Labs on day of discharge: Labs from last 24 hours 11/27/22 04:35 WBC 7.0 RBC 4.54 L Hgb 14.8 Hct 41.9 L MCV 92.3 MCH 32.6 MCHC 35.3 H RDW 12.0 Plt Count 242 MPV 11.4 Neut % (Auto) 51.3 Lymph % (Auto) 31.3 [place] % (Auto) 14.1 H Eos % (Auto) 1.6 Baso % (Auto) 1.1 Neut # (Auto) 3.6 Lymph # (Auto) 2.2 [place] # (Auto) 1.0 H Eos # (Auto) 0.1 Baso # (Auto) 0.1 Abs Immat Gran (auto) 0.04 H Imm/Tot Granulo (auto) 0.6 H Sodium 143 Potassium 4.1 Chloride 108 H Carbon Dioxide 29.1 Anion Gap 10.0 BUN 8.0 Creatinine 0.97 Est GFR ( Amer) >60 Est GFR (Non-Af Amer) >60 BUN/Creatinine Ratio 8.2 Glucose 96 Calcium 8.4 L Discharge Plan Discharge Disposition: Home, Self-Care Condition: Good Discharge Medications: New cefdinir 300 mg capsule 600 mg PO DAILY 14 Days Qty: 28 0RF clindamycin HCl [Cleocin HCl] 300 mg capsule 300 mg PO Q6H 14 Days Qty: 56 0RF Discontinued metronidazole 500 mg tablet 500 mg PO Q8H 10 Days Qty: 30 0RF Patient Instructions: Clindamycin (By mouth), Cefdinir (By mouth), Diverticulitis (DC), Abdominal Pain (DC) Forms: Portal Instructions Follow Up Appointments: Please call Dr. Mancuso's office to schedule a follow-up within 1 week [phone] Office #: [phone] Discharge Date/Time: 11/27/22 10:28
--- NOTE | 2022-11-27 09:43 | CM.NOTE ---
Rounds made with pop Estrada for discharge today after IV antibiotic given. Pt will go home on oral antibiotics.
--- NOTE | 2022-12-01 12:31 | CM.DCFOLLOWU ---
Person spoke with: Trell How are you feeling? much better How is your pain? very slight. Still afraid to eat a regular diet. Did you understand your discharge instructions? yes Do you have any questions about your discharge instructions? no Were you given any prescriptions at discharge? yes Were you able to get your prescriptions filled? yes Do you understand how to take your medications as ordered? yes Do you have any questions about your follow up appointment and do you plan to keep your follow up appointment? Not yet. Encouraged to make a follow up appointment Is there anything else that you would like to discuss? no Questions/Comments/Concerns/Other:
== END 2022-11-27 10:28 | disposition home or self-care (01) | DRG 392 ==
LOC: ER 11-23 00:32 → MS 11-23 01:30
PROVIDERS: Admitting Provider Internal Medicine; Emergency Provider Emergency Medicine; PCP Internal Medicine; Visit Provider Family Medicine
DX: K57.32 Diverticulitis of large intestine without perforation or abscess without bleeding (principal); R03.0 Elevated blood-pressure reading, without diagnosis of hypertension; Z82.49 Family history of ischemic heart disease and other diseases of the circulatory system; Z82.3 Family history of stroke; Z83.3 Family history of diabetes mellitus; Z80.9 Family history of malignant neoplasm, unspecified
CPT/HCPCS: 36415; 36416; 71045; 74177; 80048; 80053; 80170; 81001; 81003; 82948; 83690; 84484; 85025; 85610; 86140; 93005; 94761; 96365; 96366; 96367; 96368; 96375; 96376; 99285; Q3014; Q9967